=== PATIENT | male | born 1960 | race Caucasian/White ===

== ENCOUNTER 2020-10-08 12:23 | Inpatient (IN) | payer BC ==
[~2020-10-08] VITALS: Ht 182.9 cm; Wt 90.0 kg
--- NOTE | 2020-10-08 12:23 | NUR ---
TO ROOM FOR BEDSIDE TRIAGE
[2020-10-08 13:22] LABS: HEMATOCRIT 44.1 % (39.0-50.0); HEMOGLOBIN 14.9 g/dl (14.0-18.0); IMMATURE GRANULOCYTES 0.9 % (0.0-5.0); MEAN CELL VOLUME 82.3 fL CALC (80.0-100.0); MEAN CORPUSCULAR HGB 27.8 pG CALC (26.0-32.0); MEAN CORPUSCULAR HGB CONC 33.8 g/dL CAL (32.0-36.0); NEUT# 3.87 thou/uL (1.82-7.42); RED BLOOD COUNT 5.36 mill/uL (4.70-6.10); RED CELL DISTRI WIDTH 14.3 % (11.5-15.5)
--- NOTE | 2020-10-08 13:22 | NUR ---
Reassessment of patient completed. No distress noted.
[2020-10-08 13:50] LABS: ALKALINE PHOSPHATASE 104 u/l (38-126); ANION GAP 14 (6-22 (CALC)); BILIRUBIN, TOTAL 0.8 mg/dL (0.0-1.4); BUN 11 mg/dL (8-23); BUN/CREATININE RATIO 13 (12-20 (CALC)); CARBON DIOXIDE 21 mmol/l (22-30); CHLORIDE 100 mmol/l (95-108); CREATININE 0.9 mg/dL (0.7-1.3); GFR > 60 ML/MIN (>=60 (CALC)); GFR FOR AFR.AMER. > 60 ML/MIN (>=60 (CALC)); POTASSIUM 3.3 mmol/l (3.5-5.1); SGOT/AST 62 u/l (19-48); SODIUM 131 mmol/l (137-146); TOTAL PROTEIN 7.4 g/dL (6.3-8.2)
[2020-10-08 13:53] LABS: ACT PARTIAL THROMBO TIME 40.3 SECONDS (20.0-32.5); INTERNATIONAL NORMALIZED RATIO 1.1 RATIO (0.7-1.3); PROTHROMBIN TIME 11.1 SECONDS (9.0-12.5)
[2020-10-08 14:00] LABS: C-REACTIVE PROTEIN 23.3 mg/dL (0-0.9)
--- NOTE | 2020-10-08 14:59 | NUR ---
DR CASTRO STARTED ENTERING ORDERS, CALLED ER AND ASKED LUDY TO COMPLETE MED REC BEFORE PHARMACY VERIFIES ANY ORDERS.
[2020-10-08] MEDS ORDERED: HYDROXYCHLOR200 MG PO (15:03)
[2020-10-08] MEDS ORDERED: FEBUXOSTAT40 MG PO (15:04)
[2020-10-08] MEDS ORDERED: ASPIRIN81 MG PO (15:04)
[2020-10-08] MEDS ORDERED: MULTI VIT PO (15:05)
[2020-10-08] MEDS ORDERED: D3250 MCG PO (15:05)
[2020-10-08] MEDS ORDERED: TORSEMIDE20 M1 PO (15:06)
[2020-10-08] MEDS ORDERED: POT CHLORIDE20 ME3 PO (15:09)
[2020-10-08] MEDS ORDERED: HM MAGNESIUM400 MG PO (15:12)
[2020-10-08] MEDS ORDERED: VALTREX500 MG PO (15:15)
[2020-10-08] MEDS ORDERED: ALBUTEROL SUL0.083 % IN (15:17)
[2020-10-08] MEDS ORDERED: ACYCLOVIR200 MG PO (15:18)
[2020-10-08] MEDS ORDERED: DESOXIMETASONE 0.25% EX (15:19)
[2020-10-08] MEDS ORDERED: KENALOG15 GM/TUBE EX (15:19)
[2020-10-08] MEDS ORDERED: COLCHICINE0.6 M2 PO (15:19)
[2020-10-08] MEDS ORDERED: ZYRTEC10 MG PO (15:20)
--- NOTE | 2020-10-08 16:41 | NUR ---
PT REPORT TO KRISYS CARR.
[2020-10-08 17:33] VITALS: BP 149/79
--- NOTE | 2020-10-08 17:33 | NUR ---
PATIENT ARRIVED FROM ER. VITALS TAKEN AND RECORDED. NO CONCERNS OR COMPLAINTS
[2020-10-08 19:45] VITALS: BP 149/89
--- NOTE | 2020-10-08 19:56 | NUR ---
PATIENT RESTING IN BED AT THIS TIME-WITH HOB ELEVATED. O2 VIA NASAL CANNULA IN PLACE AT 2LPM. O2 SAT WAS 91% AND O2 INCREASED TO 2.5LPM-WILL REACCESS. PATIENT IS AWAKE ALERT AND ORIENTEDX3. TELE MONITOR IN PLACE. SALINE LOCK TO LEFT FOREARM IN PLACE-IVF NS HUNG AND INFUSING AT 100CC/HR. SITE IS HEALTHY AT THIS TIME. PATIENT ON ISOLATION IN NEG PRESSURE ROOM FOR COVID. PATIENT INSTRUCTED REGUARDING USE OF IS Q1H WHILE AWAKE IN REPS OF 10. ALSO INSTRUCTED REGUARDING PRONING TO PROMOTE RESP HEALING. VERBALIZES UNDERSTANDING. SAFETY PRECAUTIONS REINFORCED. CALL LIGHT IN REACH. WILL CONT TO MONITOR.
[2020-10-09] VITALS (11 sets, daily range): BP systolic 128–151; BP diastolic 71–90
--- NOTE | 2020-10-09 01:13 | NUR ---
PATIENT RESTING IN BED POSITIONED ON RIGHT SIDE WITH O2 VIA NASAL CANNULA IN PLACE. EYES ARE CLOSED. RESPS ARE EVEN AND UNLABORED AT THIS TIME. TELE MONITOR IN PLACE. IVF NS PATENT AND INFUSING VIA LEFT FREARM SITE AT 100CC/HR. SITE REMAINS HEALTHY. CALL LIGHT IN REACH. WILL CONT TO MONITOR.
--- NOTE | 2020-10-09 04:14 | NUR ---
PATIENT RESTING IN BED AT THIS TIME-POSITIONED ON RIGHT SIDE. O2 VIA NASAL CANNULA IN PLACE AT 2LPM. RESPS ARE EVEN AND UNLABORED. EYES ARE CLOSED. TELE MONITOR IN PLACE AT THIS TIME. IVF PATENT AND INFUSING ORDERED VIA LEFT FOREARM SITE. CALL LIGHT IN REACH. WILL CONT TO MONITOR.
--- NOTE | 2020-10-09 05:24 | NUR ---
0430-CALLED TO PATIENT ROOM BY BATCH MIXING TRUCK DRIVER DOING VS-O2 SAT WAS 84 WITH O2 VIA NASAL CANNULA IN PLACE AT 2LPM. ENCOURAGED PATIENT TO TAKE DEEP BREATHS. AND O2 SATS INCREASED TO 88% AFTER O2 WAS INCREASED TO 6LPM. RT CALLED TO THE ROOM AND RESPONDED. PATIENT INSISTS THAT HE HAS TO HAVE BM AND ASSISTED TO THE BSC. RT AT BEDSIDE AND PATIENT WAS PLACED ON HIGH FLOW-15LPM. PATIENT DID HAVE MODERATE AMT OF LOOSE BROWN STOOL AND ASSISTED BACK TO THE BED. SITTING UP HIGH FOWLERS POSITION. PATIENT DENIES ANY PAIN AT THIS TIME. PATIENT USED VENTOLIN INHALER ORDERED FOR PRN USE. PATIENT WITH OCC NON-PRODUCTIVE COUGH. LUNGS ARE CLEAR. IVF PATENT AND INFUSING VIA LEFT FOREARM IV SITE AT 100CC/HR. SITE IS HEALTHY AT THIS TIME. CALL LIGHT IN REACH. WILL CONT TO MONITOR. 0530-PATIENT RESTING IN BED IN HIGH FOWLERS POSITION.AWAKE ALERT AND ORIENTED. O2 HIGH FLOW 15LPM. PATIENT DENIES FEELING SOB OR HAVING ANY PAIN AT THIS TIME. O2 SAT IS 92% AT THIS TIME. WILL CONT TO MONITOR.
[2020-10-09 05:46] LABS: HEMOGLOBIN 14.8 g/dl (14.0-18.0); IMMATURE GRANULOCYTES 0.7 % (0.0-5.0); MEAN CORPUSCULAR HGB 27.3 pG CALC (26.0-32.0); MEAN CORPUSCULAR HGB CONC 32.9 g/dL CAL (32.0-36.0); NEUT# 3.28 thou/uL (1.82-7.42); RED BLOOD COUNT 5.42 mill/uL (4.70-6.10); RED CELL DISTRI WIDTH 14.2 % (11.5-15.5)
--- NOTE | 2020-10-09 05:57 | NUR ---
RESTING IN BED AT THIS TIME WITH HIGH FLOW O2 AT 15LITER IN PLACE. O2 SAT AT THIS TIME IS 94%. IVF PATENT AND INFUSING VIA LEFT FOREARM IV SITE AT 100CC/HR. SITE REMAINS H EALTHY. TELE MONITOR IN PLACE. NO COMPLAINTS AT THIS TIME-NO PAIN, NO SOB AT THIS TIME. CALL LIGHT IN REACH. WILL CONT TO MONITOR.
[2020-10-09 06:15] LABS: ALBUMIN 3.3 g/dL (3.2-5.0); ALKALINE PHOSPHATASE 96 u/l (38-126); ANION GAP 12 (6-22 (CALC)); BILIRUBIN, TOTAL 0.7 mg/dL (0.0-1.4); BUN 12 mg/dL (8-23); BUN/CREATININE RATIO 16 (12-20 (CALC)); CARBON DIOXIDE 23 mmol/l (22-30); CHLORIDE 105 mmol/l (95-108); CREATININE 0.7 mg/dL (0.7-1.3); GFR > 60 ML/MIN (>=60 (CALC)); GFR FOR AFR.AMER. > 60 ML/MIN (>=60 (CALC)); POTASSIUM 3.6 mmol/l (3.5-5.1); SGOT/AST 56 u/l (19-48); SODIUM 136 mmol/l (137-146); TOTAL PROTEIN 6.3 g/dL (6.3-8.2)
--- NOTE | 2020-10-09 06:26 | NUR ---
PATIENT SITTING HIGH FOWLERS WITH HIGH FLOW O2 AT 15LPM-O2 SAT IS 92-93% AT THIS TIME. TELE MONITOR IN PLACE. IVF PATENT AND INFUSING AT 100CC/HR ORDERED VIA LEFT FOREARM IV SITE. SITE REMAINS HEALTHY. SAFETY PRECAUTIONS REINFORCED. CALL LIGHT IN REACH. WILL CONT TO MONITOR.
[2020-10-09 06:35] LABS: C-REACTIVE PROTEIN 22.2 mg/dL (0-0.9)
--- NOTE | 2020-10-09 07:42 | NUR ---
PT SITTING IN BED EATING BREAKFAST. A&O X3. O2 VIA NC @15L HIGH FLOW IN PLACE. O2% SUSTAINING AT 96%, HIGHFLOW TITRATED DOWN TO 10L. O2 SUSTAINING 91-93%. PORTABLE O2 FINGER MONITOR PLACED FOR CONTINOUS O2 MONITORING. PT EDUCATED ON PRONING, EXPLAINED TO THE PT THAT HE WILL BE PRONING TO HELP WITH OXYGENATION NEEDS, PT AGREEABLE TO PLAN. IVF INFUSING PER MAR ORDERS. LOOM REPAIRER IN PLACE. CLEAR/DIMINISHED BREATH SOUNDS HEARD UPON AUSCULTATION. ASSESSMENT COMPLETED. DISCUSSED POC. CALL LIGHT LEFT WITHIN REACH.
--- NOTE | 2020-10-09 09:48 | NUR ---
PT ASSISTED INTO PRONE POSITION. O2 AT 10L HIGH FLOW. CALL LIGHT LEFT WITHIHN REACH.
--- NOTE | 2020-10-09 10:32 | NUR ---
DR HALE AT BEDSIDE O2 TITRATED BACK UP TO 15L HIGH FLOW
--- NOTE | 2020-10-09 10:45 | NUR ---
ORDERS OBTAINED TO TRANSFER PT TO ICU.
--- NOTE | 2020-10-09 11:16 | NUR ---
PT TAKEN VIA BED TO ICU BED 6 WITH O2 @15L. PT IN STABLE CONDITION. O2 MONITOR IN PLACE FOR CONTINIOUS O2 MONITORING DURING TRANSPORT. PT SETTLED IN ROOM. ORIENTED PT TO ROOM. CALL LIGHT LEFT WITHIN REACH.
--- NOTE | 2020-10-09 11:35 | NUR ---
PT IN ICU, ALERT/ORIENTED X3, ON HIGH FLOW 15 LITRES N/C, VITAL SIGNS STABLE. MOVED DUE TO HIGH USE OF OXYGEN
--- NOTE | 2020-10-09 12:42 | NUR ---
PT SITTING UP IN BED WATCHING TV, DENIES ANY COMPLAINTS AT THIS TIME REMAINS ALERT/ORIENTED X3.
--- NOTE | 2020-10-09 15:55 | NUR ---
PT SITTING UP IN HIGH FOWLERS POSITION, ALERT/ORIENTED X3, PT REMAINS ON HIGH FLOW 15 LITRES/NC, SATS 95-97%, WHILE TALKING TO PT HE STATES TO MAKE SURE THAT HE HAS ALL HIS ALLERGYS ON CHART. THAT HE HAD SEVERE ALLERGIC REACTIONS TO SUCCIYLCHELINE OR MIVACURIUM USED DURING AN INTUBATION. HE STATES HIS SURGEONS STATES NOT TO USE ANY OF THE [employer] DRUGS FOR THAT USE. UNABLE TO SPECIFICALLY STATE WHAT HAPPENED DURING THE TIME HE WAS INTUBATED WITH THOSE DRUGS.
--- NOTE | 2020-10-09 17:26 | NUR ---
UP TO USE URINAL, WHICH PT STATES HAS TO STAND TO DO, SATS DROPPED DOWN TO 87, RESP LABORED, BUT WITHIN 2 MIN OF LAYING BACK DOWN, SATS CAME BACK UP TO 95-96%.
--- NOTE | 2020-10-09 19:20 | NUR ---
pt called this blurb writer. pt requested to "go over some of my medicine." o2 cont 15 l/m per nc. pt laying on rt side. unable to prone d/t lower o2 sats as reported from previous shift. pt requested that physician be notified regarding some home meds he wanted restarted(valtrex, plaquenil,febuxostat). asked this blurb writer when call would be made. instructed pt after other pts were assessed. pt expressed "concern for my driving late." assisted to bedside commode. pt reassured. pt has MANY needs:water glass filled up, towel & wash cloth, cell phone plugged up, house shoes close to him, blinds closed then "cover me up" when pt went back to bed. sao2 87% after activity. pt recovered to 92%. pvc monitor shows sinus rhythm hr 78. #20 lfa ns infusing @ 100cchr. fall & air/contact precautions cont.
--- NOTE | 2020-10-09 19:40 | NUR ---
dr niño notified of pts request.
--- NOTE | 2020-10-09 20:00 | NUR ---
med in computor. pt notified & to let come into er waiting room to bring meds. pt asked "can she bring them in the morning?" asked pt wasn't that the reason he wanted them reordered was because he hadn't taken them today. 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
--- NOTE | 2020-10-09 21:00 | NUR ---
called this expert medical writer. requested to use urinal. pt sitting on side of bed. instructed pt urinal was hanging on beside commode where he hung it. voided per urinal, brushed teeth then c/o sob. pt then said he was "worried about having covid & my daughter wants her to be tested." pt reassured. instructed pt he may want to limit conversation d/t sao2 82%. rt notified of need to check sao2.
--- NOTE | 2020-10-09 21:20 | NUR ---
rt here. vapotherm began.
[2020-10-10] VITALS (15 sets, daily range): BP systolic 101–156; BP diastolic 54–89
--- NOTE | 2020-10-10 00:01 | NUR ---
eyes closed. no distress. o2 cont per vapotherm. sao2 92%
--- NOTE | 2020-10-10 02:00 | NUR ---
resting quietly. resps even & unlabored. no apparet resp distress.
--- NOTE | 2020-10-10 03:30 | NUR ---
up to bedside commode then back to bed. sao2 72%. rt was notified & he increased vapotherm to 40 l/m 100%-sao2 95%.
--- NOTE | 2020-10-10 04:30 | NUR ---
lab here. blood drawn.
[2020-10-10 04:54] LABS: HEMATOCRIT 43.1 % (39.0-50.0); HEMOGLOBIN 13.9 g/dl (14.0-18.0); IMMATURE GRANULOCYTES 1.2 % (0.0-5.0); MEAN CELL VOLUME 83.9 fL CALC (80.0-100.0); MEAN CORPUSCULAR HGB CONC 32.3 g/dL CAL (32.0-36.0); NEUT# 6.84 thou/uL (1.82-7.42); RED BLOOD COUNT 5.14 mill/uL (4.70-6.10); RED CELL DISTRI WIDTH 14.4 % (11.5-15.5)
--- NOTE | 2020-10-10 06:00 | NUR ---
eyes closed. sao2 93% on 40 l/m 100% vapotherm.
--- NOTE | 2020-10-10 09:17 | NUR ---
PT SEEN AWAKE, ALERT, ORIENTED X 3. LUNGS CLEAR, VAPOTHERM AT 40/100. PT WATCHES MONITOR, AWAKE OF HIS DESATTING. PT OOB IN CHAIR AT THIS TIME.
--- NOTE | 2020-10-10 11:40 | NUR ---
PT SEEN BY DR CASTRO THIS MORNING, CONTINUES WITH BORDERLINE SATS IN THE LOW TO MID 90s. PT DENIES SOB.
--- NOTE | 2020-10-10 15:57 | NUR ---
PT CONTINUES AT REST IN THE BED, SATS LOW 90s. NO SHORTNESS OF BREATH NOTED EXCEPT WITH EXERTION.
--- NOTE | 2020-10-10 18:38 | NUR ---
PT ABLE TO EAT SUPPER, LIQUIDS, SINCE CHEWING TAKES TOO MUCH TIME BEFORE HE CAN GET ANOTHER BREATH. PT DOING WELL, SATS REMAINING 89-94%.
--- NOTE | 2020-10-10 20:36 | NUR ---
DR. JORGE CALL PER CONSULTATION ORDER. UNABLE TO VIDEO CHAT DUE TO TECHNICAL ISSUES ON HER END. PROVIDER SPOKE WITH PATIENT VIA PHONE. REVIEWED CHIEF COMPLAINTS AND HISTORY. PATIENT CURRENTLY ON VAPOTHERM 40/100 SATURATION 92%. PHYSICIAN RECOMMENDS USE OF INCENTIVE SPIROMETRY, PATIENT HAVE AT BEDSIDE. SHE ALSO RECOMMENDS USE OF FLUTTER VALVE AFTER ALBUTEROL INHALER. SHE FURTHER EXPLAINS THAT HIS RECOVERY WILL BE SLOW AND DISCUSS THE POSSIBLITY OF HOME OXYGEN UPON DISCHARGE. PROVIDER ALLOWED TIME FOR QUESTIONS FROM PATIENT AND ANSWERED. PATIENT VERBALIZES UNDERSTANDING OF PLAN SAID BY DR. JORGE.
--- NOTE | 2020-10-10 22:52 | NUR ---
LATE ENTRY 1904 SBAR RECEIVED FROM KRISSY CAMPBELL. PATIENT LYING QUIETLY IN BED. CALL LIGHT IN REACH.
[2020-10-11] VITALS (13 sets, daily range): BP systolic 128–160; BP diastolic 82–92
--- NOTE | 2020-10-11 00:56 | NUR ---
RESTING QUIETLY EYES CLOSED. SATURATION 93%. NO DISTRESS NOTED. CALL LIGHT WITHIN REACH
--- NOTE | 2020-10-11 02:16 | NUR ---
PATIENT WAS ASSISTED TO BSC. VOIDS YELLOW/CLEAR URINE. NO ACUTE DISTRESS SHOWN. NO COMPLAINTS AT THIS TIME. CALL LIGHT WITHIN REACH.
[2020-10-11 06:00] LABS: HEMATOCRIT 46.3 % (39.0-50.0); HEMOGLOBIN 15.3 g/dl (14.0-18.0); IMMATURE GRANULOCYTES 2.6 % (0.0-5.0); MEAN CELL VOLUME 83.7 fL CALC (80.0-100.0); MEAN CORPUSCULAR HGB 27.7 pG CALC (26.0-32.0); NEUT# 8.79 thou/uL (1.82-7.42); RED BLOOD COUNT 5.53 mill/uL (4.70-6.10); RED CELL DISTRI WIDTH 14.4 % (11.5-15.5)
[2020-10-11 06:18] LABS: ALBUMIN 3.5 g/dL (3.2-5.0); ALKALINE PHOSPHATASE 115 u/l (38-126); BILIRUBIN, TOTAL 0.8 mg/dL (0.0-1.4); BUN 13 mg/dL (8-23); BUN/CREATININE RATIO 17 (12-20 (CALC)); C-REACTIVE PROTEIN 4.9 mg/dL (0-0.9); CHLORIDE 100 mmol/l (95-108); CREATININE 0.8 mg/dL (0.7-1.3); GFR > 60 ML/MIN (>=60 (CALC)); GFR FOR AFR.AMER. > 60 ML/MIN (>=60 (CALC)); POTASSIUM 3.7 mmol/l (3.5-5.1); SGOT/AST 77 u/l (19-48); SODIUM 137 mmol/l (137-146); TOTAL PROTEIN 6.7 g/dL (6.3-8.2)
--- NOTE | 2020-10-11 06:22 | NUR ---
PATIENT CONTINUES TO REST QUIETLY. DENIES PAIN AT THIS TIME. NO DISCOMFORT NOTED. SATURATION 91%.
[2020-10-11 06:31] LABS: ANION GAP 11 (6-22 (CALC)); CARBON DIOXIDE 30 mmol/l (22-30)
--- NOTE | 2020-10-11 08:38 | NUR ---
PT AT REST IN THE BED, NO RESPIRATORY DISTRESS. VAPOTHERM AT 40 LPM 100% WITH SATS IN THE UPPER 80s TO LOW 90s. LUNGS CLEAR. PT ENCOURAGED TO USE INCENTIVE SPIROMETER AND FLUTTER VALVE RECOMMENDED BY DR JORGE.
--- NOTE | 2020-10-11 11:27 | NUR ---
DR CASTRO IN TO SEE PT THIS MORNING, VAPOTHERM SETTINGS CHANGED FROM 40 LPM 100% OXYGEN TO 35 LPM 95% OXYGEN. PT TOLERATING WELL AT 92% TO THIS POINT.
--- NOTE | 2020-10-11 16:11 | NUR ---
PT HAS BEEN WEANED DOWN TO 35 LPM 85%, SATS SEEN LOW 90s, TOLERATING WELL.
--- NOTE | 2020-10-11 19:10 | NUR ---
SBAR RECEIVED FROM SHANNAN REY. PATIENT SHORT OF BREATH AFTER USING BSC. SATURATION 87% ON VAPOTHERM 35L/83%. OXYGEN INCREASED TO 85%, AFTER COACHING THROUGH BREATHING TECHNIQUES SATURATION INPROVED TO 90%
--- NOTE | 2020-10-11 22:22 | NUR ---
RESTING QUIETLY IN BED. SATURATION CURRENTLY 92%, PATIENT OCCASIONALLY DE-SAT WITH EXERTION. NO DISTRESS NOTED AT THIS TIME, CALL LIGHT WITHIN REACH.
[2020-10-12] VITALS (16 sets, daily range): BP systolic 131–168; BP diastolic 68–101
--- NOTE | 2020-10-12 01:09 | NUR ---
PATIENT CONTINUES TO DE-SAT TO LOW 80'S WITH EXERTION. HE HAS DIFFICULTY RECUPERATING, TAKING 10 MINUTES OR LONGER FOR SATURATION TO IMPROVE.
--- NOTE | 2020-10-12 04:59 | NUR ---
PATIENT UP TO BEDSIDE TO USE URINAL. SATURATION DOWN TO HIGH 70'S, LOW 80'S. PATIENT HAVING DIFFICULTY RECUPERATING ON VAPOTHERM SETTING 35L/85%. RELAXATION AND DEEP BREATHING TECHNIQUES PERFORMED WITHOUT SUCCESS. RESPIRATORY THERAPIST NOTIFIED, CHANGED SETTING TO 35L/90%. STILL TOOK ABOUT 10 MINUTES TO REACH SATURATION OF 90%. PATIENT ASSISTED BACK TO BED, LEFT LATERAL POSITION. CALL LIGHT WITHIN REACH WILL CONTINUE TO MONITOR.
[2020-10-12 06:08] LABS: HEMATOCRIT 46.1 % (39.0-50.0); HEMOGLOBIN 15.2 g/dl (14.0-18.0); IMMATURE GRANULOCYTES 5.6 % (0.0-5.0); MEAN CELL VOLUME 83.8 fL CALC (80.0-100.0); MEAN CORPUSCULAR HGB 27.6 pG CALC (26.0-32.0); NEUT# 8.69 thou/uL (1.82-7.42); RED BLOOD COUNT 5.5 mill/uL (4.70-6.10); RED CELL DISTRI WIDTH 14.3 % (11.5-15.5)
[2020-10-12 06:41] LABS: ALBUMIN 3.3 g/dL (3.2-5.0); ALKALINE PHOSPHATASE 110 u/l (38-126); ANION GAP 11 (6-22 (CALC)); BILIRUBIN, TOTAL 0.8 mg/dL (0.0-1.4); BUN 11 mg/dL (8-23); BUN/CREATININE RATIO 14 (12-20 (CALC)); CARBON DIOXIDE 32 mmol/l (22-30); CHLORIDE 98 mmol/l (95-108); CREATININE 0.8 mg/dL (0.7-1.3); GFR > 60 ML/MIN (>=60 (CALC)); GFR FOR AFR.AMER. > 60 ML/MIN (>=60 (CALC)); POTASSIUM 3.7 mmol/l (3.5-5.1); SGOT/AST 77 u/l (19-48); SODIUM 137 mmol/l (137-146); TOTAL PROTEIN 6.5 g/dL (6.3-8.2)
--- NOTE | 2020-10-12 09:09 | NUR ---
O2 SATURATION DROPPED TO 80%. FIO2 INCREASED TO 100% AND 40L.
--- NOTE | 2020-10-12 09:14 | NUR ---
PT IS ALERT AND ORIENTED X 3. EARLIER SATS WERE LOW 90s WITH 35/90 VAPOTHERM. SINCE THAT TIME PT HAS BECOME INCREASINGLY SHORT OF BREATH, SATS UPPER 80s, RT HAS TURNED VAPOTHERM UP TO MAX 40/100, HR 120-130. PT APPEARS LABORING, WILL PROMOTE GOOD POSITIONING, RELAXATION TECHNIQUES.
--- NOTE | 2020-10-12 13:33 | NUR ---
PT WAS TURNED BACK UP TO 40/100 SINCE HE WAS LABORING TO BREATHE AND SATS WERE 80s. PT WAS LATER BATHED, SITS UP IN CHAIR, CONTINUES LABORING SOMEWHAT WITH BREATHING, NO PLANS TO BRING LPM OR %O2 DOWN HE LABORS.
--- NOTE | 2020-10-12 16:15 | NUR ---
PT REMAINS IN THE CHAIR, AT REST. VAPOTHERM CONTINUES 40/100 TO ALLOW HIM LESS WORK AT MAINTAINING GOOD SATS, NOW 93%.
--- NOTE | 2020-10-12 19:40 | NUR ---
sitting in bedside chair. o2 cont 40 liters 100% per vapotherm. sob w exert but no acute resp diff. color television console monitor shows sinus rhythm pvcs hr 81. #20 lfa saline lock. po fluids taken well. voids per urinal. fall & air/contact precautions cont. requires MUCH encouragement to assist with care.
--- NOTE | 2020-10-12 22:00 | NUR ---
eyes closed. no distress. cardiac catheterization technologist shows sinus rhythm hr 84.
[2020-10-13] VITALS (13 sets, daily range): BP systolic 122–173; BP diastolic 65–107
--- NOTE | 2020-10-13 00:01 | NUR ---
yes closed. nad. o2 cont.
--- NOTE | 2020-10-13 02:00 | NUR ---
resting quietly. resps even & unlabored. residential monitor shows sinus rhythm pvcs hr 84.
--- NOTE | 2020-10-13 05:00 | NUR ---
lab here. blood drawn.
--- NOTE | 2020-10-13 05:55 | NUR ---
pulse ox 82-83%. rt notified.
[2020-10-13 06:07] LABS: HEMATOCRIT 50.6 % (39.0-50.0); MEAN CELL VOLUME 83.5 fL CALC (80.0-100.0); MEAN CORPUSCULAR HGB 28.1 pG CALC (26.0-32.0); MEAN CORPUSCULAR HGB CONC 33.6 g/dL CAL (32.0-36.0); NEUT# 9.17 thou/uL (1.82-7.42); RED BLOOD COUNT 6.06 mill/uL (4.70-6.10); RED CELL DISTRI WIDTH 14.5 % (11.5-15.5)
[2020-10-13 06:20] LABS: IMMATURE GRANULOCYTES 6.8 % (0.0-5.0)
[2020-10-13 06:23] LABS: ALKALINE PHOSPHATASE 127 u/l (38-126); ANION GAP 15 (6-22 (CALC)); BILIRUBIN, TOTAL 0.9 mg/dL (0.0-1.4); BUN 17 mg/dL (8-23); BUN/CREATININE RATIO 18 (12-20 (CALC)); CARBON DIOXIDE 35 mmol/l (22-30); CHLORIDE 94 mmol/l (95-108); GFR > 60 ML/MIN (>=60 (CALC)); GFR FOR AFR.AMER. > 60 ML/MIN (>=60 (CALC)); POTASSIUM 3.6 mmol/l (3.5-5.1); SGOT/AST 55 u/l (19-48); SODIUM 140 mmol/l (137-146); TOTAL PROTEIN 7.8 g/dL (6.3-8.2)
--- NOTE | 2020-10-13 06:23 | NUR ---
PT PLACED ON BIPAP PER PT SPO2. ARTHUR WELL. NO ACUTE DISTRESS NOTED. PT NOW RESTING COMFORTABLY ON LEFT SIDE, LAYING IN BED, WITH HJOB FLAT. TELEPHONE APPOINTMENT CLERK TO MONITOR. RN AWARE.
[2020-10-13 06:42] LABS: C-REACTIVE PROTEIN 22.7 mg/dL (0-0.9)
--- NOTE | 2020-10-13 07:30 | NUR ---
REPORT RECEIVED FROM MARIANA KINNEY. PT RESTING IN BED ON RIGHT SIDE WITH BIPAP ON 27/03 100%. BIPAP REMOVED AND PLACED ON VAPOTHERM 40L 100%. PT IS ALERT AND ORIENTED X 3; DENIES PAIN; REPORTS THAT TYLENOL WAS EFFECTIVE FOR HEADACHE AND LOWER BACK PAIN. ASSISTED UP INTO CHAIR; SOB WITH EXERTION AN SPO2 DECREASES TO 84%; LUNGS ARE DIMINISHED. IV SITE APPEARS HEALTHY AND FLUSHES. POC REVIEWED. PT ENCOURAGED TO VERBALIZE CONCERNS. STATES UNDERSTANDING. SAFETY MEASURES IN PLACE. CALL LIGHT WITHIN REACH.
--- NOTE | 2020-10-13 09:24 | NUR ---
UP TO BSC FOR BOWEL MOVEMENT. BRIGHT RED BLOOD IN STOOL; PT REPORTS THAT HE NORMALLY GETS HEMORRHOIDS WHEN HE IS ON ANTIBIOTICS. BACK UP BEDSIDE CHAIR.
--- NOTE | 2020-10-13 10:07 | NUR ---
DR. CASTRO AT BEDSIDE.
--- NOTE | 2020-10-13 12:00 | NUR ---
ROCEPHIN INFUSING AT THIS TIME; PT SET UP FOR ORAL CARE. NURSE IN ROOM FREQUENTLY FOR PT REQUESTS. BLOOD PRESSURE SLIGHTLY ELEVATED; WILL CONTINUE TO MONITOR.
--- NOTE | 2020-10-13 14:21 | NUR ---
TYLENOL GIVEN FOR HEADACHE ALONG WITH DIET COLA PER REQUEST. REMDESIVIR NOW INFUSING.
--- NOTE | 2020-10-13 16:01 | NUR ---
pt doing well on current vapotherm settings. no changes in parameters at this time. no acute distress noted. vital signs stable. plug cutter to monitor.
--- NOTE | 2020-10-13 17:30 | NUR ---
SITTING UP EATING DINNER; RESPIRATIONS EVEN AND UNLABORED; PT REMAINS WITH EXERTION SOB. SPO2 90-91% ON VAPOTHERM 40L 100% FIO2. REPORTS THAT TYLENOL WAS EFFECTIVE FOR HEADACHE. NO OTHER REQUESTS OR CONCERNS AT THIS TIME. CALL LIGHT WITHIN REACH.
--- NOTE | 2020-10-13 19:30 | NUR ---
sitting in bedside chair. denies resp diff. o2 cont 40 liters 100% per vapotherm. front desk monitor shows sinus rhythm hr 90. #20 lfa saline lock. po fluids taken well. voids per urinal. fall & air/contact precautions cont.
--- NOTE | 2020-10-13 22:30 | NUR ---
assisted to bed. cont to be sob with exert but denies distress. o2 cont.
[2020-10-14] VITALS (12 sets, daily range): BP systolic 138–173; BP diastolic 77–104
--- NOTE | 2020-10-14 00:01 | NUR ---
awake. voided per urinal. cardiac rn shows sinus tach pvcs hr 104.
--- NOTE | 2020-10-14 00:30 | NUR ---
up to bsc per request. requested bipap off while on commode. request denied. instructed pt bipap would remain. lea well.
--- NOTE | 2020-10-14 02:10 | NUR ---
awake. sitting on side of bed. sa02 79-82%. rt notified. bipap began.
--- NOTE | 2020-10-14 02:30 | NUR ---
assisted to chair per request.
--- NOTE | 2020-10-14 02:40 | NUR ---
assisted back to bed. bipap cont.
--- NOTE | 2020-10-14 04:00 | NUR ---
eyes closed. bipap cont. no distress. manager monitoring shows sinus rhythm pvcs hr 66.
--- NOTE | 2020-10-14 05:00 | NUR ---
lab here. blood drawn.
[2020-10-14 05:45] LABS: HEMATOCRIT 46.8 % (39.0-50.0); MEAN CELL VOLUME 84.9 fL CALC (80.0-100.0); MEAN CORPUSCULAR HGB 27.2 pG CALC (26.0-32.0); MEAN CORPUSCULAR HGB CONC 32.1 g/dL CAL (32.0-36.0); RED BLOOD COUNT 5.51 mill/uL (4.70-6.10); RED CELL DISTRI WIDTH 14.2 % (11.5-15.5)
[2020-10-14 06:18] LABS: ALBUMIN 3.4 g/dL (3.2-5.0); ALKALINE PHOSPHATASE 122 u/l (38-126); ANION GAP 11 (6-22 (CALC)); BILIRUBIN, TOTAL 0.8 mg/dL (0.0-1.4); BUN 19 mg/dL (8-23); BUN/CREATININE RATIO 18 (12-20 (CALC)); CARBON DIOXIDE 36 mmol/l (22-30); CHLORIDE 95 mmol/l (95-108); GFR > 60 ML/MIN (>=60 (CALC)); GFR FOR AFR.AMER. > 60 ML/MIN (>=60 (CALC)); POTASSIUM 3.8 mmol/l (3.5-5.1); SGOT/AST 35 u/l (19-48); SODIUM 138 mmol/l (137-146); TOTAL PROTEIN 6.9 g/dL (6.3-8.2)
--- NOTE | 2020-10-14 07:25 | NUR ---
PLACED PT FROM BIPAP TO VAPOTHERM PER REQUEST. SITUATED PT IN BEDSIDE CHAIR. REPLACED SPO2 PROBE, AND STAYED WITH PT UNTIL SPO2 BACK WNL. SD SITING COMFORTABLY IN CHAIR, ON PERSONAL CELL PHONE. NO APPARANT DISTRESS NOTED.RN AWARE. METER INSTALLER TO MONITOR.
--- NOTE | 2020-10-14 09:27 | NUR ---
PT SEEN AWAKE, ALERT, ORIENTED X 3. LUNGS CLEAR BUT SLIGHTLY DIMINISHED TODAY, PT USING VAPOTHERM AT 40/100. PT IN CHAIR AT THIS TIME, MOVES BETWEEN BED AND CHAIR PER COMFORT LEVEL. ALMAZAN. PT AWARE OF NEW ORDER FOR ANTIANXIETY MED, ENCOURAGED TO USE IF NEEDED.
--- NOTE | 2020-10-14 10:21 | NUR ---
DAUGHTER KIT WAS UPDATED ON PT CONDITION, .
--- NOTE | 2020-10-14 13:00 | NUR ---
PT REMAINS OOB IN CHAIR WITH VAPOTHERM RUNNING AT 40/100. PT STATES THAT HE IS RECOVERING QUICKER FROM ACTIVITY WHEN HE STANDS TO VOID OR USE BSC.
--- NOTE | 2020-10-14 16:26 | NUR ---
PT ARTHUR VAPOTHERM WEL AT THIS TIME. RESTING COMFORTABLY IN CHAIR AT BEDSIDE. DAY CARE ATTENDANT TO MONITOR. NO ACUTE DISTRESS NOTED. VSS.
--- NOTE | 2020-10-14 16:38 | NUR ---
DR GARCIA HAS BEEN CONSULTED VIA TELEMEDICINE, RECOMMENDATIONS IN CHART. DR CASTRO AWARE, ORDERS NEW MED. PT CONTINUES WITH SATS IN THE LOW 90s MOST OF THE TIME.
--- NOTE | 2020-10-14 19:18 | NUR ---
PT RESTING COMFORTABLY IN RECLINER AT BEDSIDE. NO ACUTE DISTRESS NOTED. VITAL SIGNS STABLE. SUPERVISOR SHEET MANUFACTURING TO MONITOR.
--- NOTE | 2020-10-14 19:45 | NUR ---
sitting in bedside chair. denies resp diff. o2 cont 40 l/m 100% per vapotherm. #20 lfa saline lock. po fluids taken well. voids per urinal. fall & air/contact precautions cont.
--- NOTE | 2020-10-14 22:00 | NUR ---
remains in bedside chair. nad. o2 cont per vapotherm.
--- NOTE | 2020-10-14 22:15 | NUR ---
assisted to bedside commode then into bed. requested bipap. rt notified.
[2020-10-15] VITALS (11 sets, daily range): BP systolic 114–178; BP diastolic 69–110
--- NOTE | 2020-10-15 02:00 | NUR ---
eyes closed. resps even & unlabored. bipap conts.
--- NOTE | 2020-10-15 02:15 | NUR ---
up to bsc per request. requested bipap off & n/c on while on bsc. request denied.
--- NOTE | 2020-10-15 03:50 | NUR ---
up to bsc. lea well. no resp diff.
--- NOTE | 2020-10-15 05:15 | NUR ---
lab here. blood drawn.
[2020-10-15 05:24] LABS: HEMATOCRIT 45.3 % (39.0-50.0); HEMOGLOBIN 14.7 g/dl (14.0-18.0); MEAN CELL VOLUME 85.2 fL CALC (80.0-100.0); MEAN CORPUSCULAR HGB 27.6 pG CALC (26.0-32.0); MEAN CORPUSCULAR HGB CONC 32.5 g/dL CAL (32.0-36.0); NEUT# 6.3 thou/uL (1.82-7.42); RED BLOOD COUNT 5.32 mill/uL (4.70-6.10); RED CELL DISTRI WIDTH 14.2 % (11.5-15.5)
[2020-10-15 05:28] LABS: IMMATURE GRANULOCYTES 6.1 % (0.0-5.0)
--- NOTE | 2020-10-15 05:57 | NUR ---
eyes closed. no distress. bipap conts. property assessment monitor shows sinus rhythm hr 76.
[2020-10-15 06:25] LABS: ALBUMIN 3.5 g/dL (3.2-5.0); ALKALINE PHOSPHATASE 127 u/l (38-126); ANION GAP 11 (6-22 (CALC)); BILIRUBIN, TOTAL 0.8 mg/dL (0.0-1.4); BUN 20 mg/dL (8-23); BUN/CREATININE RATIO 24 (12-20 (CALC)); C-REACTIVE PROTEIN 7.7 mg/dL (0-0.9); CARBON DIOXIDE 34 mmol/l (22-30); CHLORIDE 96 mmol/l (95-108); CREATININE 0.9 mg/dL (0.7-1.3); GFR > 60 ML/MIN (>=60 (CALC)); GFR FOR AFR.AMER. > 60 ML/MIN (>=60 (CALC)); SGOT/AST 36 u/l (19-48); SODIUM 137 mmol/l (137-146); TOTAL PROTEIN 7.2 g/dL (6.3-8.2)
--- NOTE | 2020-10-15 07:00 | NUR ---
PT SLEEPING IN BED WITH BIPAP ON, O2 95%, RR 29. ST ON MONITOR, OCCASIONAL PVC'S. NO S/S OF DISTRESS OBSERVED.
--- NOTE | 2020-10-15 08:21 | NUR ---
PLACED PT ON VPOTHERM, OF OF BIPAP, PER PT BREAKFAST TRAY AVAILABLE. MOED PT FROM BED TOBEDSIDE CHAIR PER PT REQUEST, REORGANIZED AND SITUATED PT TO COMFORT. STAYED C PT UNTIL VSS. NO ACUTE DISTRESS AT THIS TIME. DIRECTOR OF CULTURE TO MONITOR. RN AWARE.
--- NOTE | 2020-10-15 11:47 | NUR ---
PT RESTING IN CHAIR AT BEDSIDE. NAD. VSS. MEDICAL VOUCHER CLERK TO MONITOR.
--- NOTE | 2020-10-15 19:09 | NUR ---
PATIENT SITS IN RECLINER, RESTS WITH EYES CLOSED. NO ACUTE DISTRESS SHOWN. SR ON TELEMETRY, HR 80'S. O2 SAT 95%, RESPIRATION RATE 25-28.
--- NOTE | 2020-10-15 19:45 | NUR ---
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 HAD A SMALL/SOFT/BROWN BM, VOIDED IN URINAL 250 ML YELLOW/CLEAR. PATIENT BECOMES SOB AND DESATS TO 76% WHEN STANDING UP AND USING BSC. PATIENT WAS DIRECTED EACH TIME TO TAKE DEEP BREATHS AND ENCOURAGED PURSED LIP BREATHING, HE NEEDS CONSTANT REINFORCEMENT, EDUCATED TO FOCUS ON HIS BREATHING, HR TACHYCARDIC IN LOW 100'S. NURSE ASSESSMENT PERFORMED. ON VAPOTHERM 40 LITERS AND 100% FIO2. POC DISCUSSED, MEDICATIONS HE IS CURRENTLY ON DISCUSSED. HAS A PRODUCTIVE COUGH. RESPIRATIONS UP TO 29-35 WITH EXERTION. AFEBRILE. LFA 20 G IV INTACT, FLUSHES PROPERLY, SALINE LOCKED. NO OTHER COMPLAINTS OR NEEDS AT THIS TIME. CALL LIGHT WITHIN REACH.
--- NOTE | 2020-10-15 21:47 | NUR ---
PATIENT ABLE TO SWALLOW HIS MEDICATIONS, TOLERATED LOVENOX INJECTION. USED URINAL, DID DESAT TO 76%, SITS DOWN ON RECLINER TO DEEP BREATH. ABLE TO TRASNFER TO BED, LAYS ON HIS RIGHT SIDE. DRINKS WATER, APPLIES MOUTH MOISTURIZER, REPORTS HE WILL BE ON VAPOTHERM AND IF ANY CHANGES HE WILL REQUEST BIPAP. CALL LIGHT WITHIN REACH. WILL CONTINUE TO MONITOR.
[2020-10-16] VITALS (20 sets, daily range): BP systolic 119–185; BP diastolic 73–111
--- NOTE | 2020-10-16 00:13 | NUR ---
PATIENT HAD GOTTEN U TO USE URINAL, DESATS TO 70'S. NOW LAYS ON HIS LEFT SIDE, ENCOURAGED DEEP BREATHING. RESP RATE 30'S. JIHAN CONTINUE TO MONITOR.
--- NOTE | 2020-10-16 04:18 | NUR ---
PATIENT UP TO USE URINAL AND BECAME SOB, TACHYPNEIC, O2 SATS LOW 56%, PATIENT WANTED TO KEEP TALKING, WAS INSTRUCTED TO TAKE DEEP BREATHS, PURSED LIP BREATHING, FOCUS ON BREATHING. O2 SAT AROUND 60'S-70%, PATIENT WAS EXPLAINED HE NEEDED BIPAP AT THIS TIME, RT CALLED TO BEDSIDE, PLACED ON BIPAP AT FIO2 OF 100%, PATIENT AT THIS TIME O2 SATS ARE 92%. RESPIRATION RATE 26. LAYS ON HIS LEFT SIDE. DOES HAVE A THICK/BLOOD TINGED/YELLOW-GREEN PRODUCTIVE COUGH. AFEBRILE. BP AT TIME OF DISTRESS READ 180'S, NOW 133/78 MMHG. CALL LIGHT WITHIN REACH.
[2020-10-16 05:18] LABS: HEMOGLOBIN 15.4 g/dl (14.0-18.0); MEAN CELL VOLUME 86.1 fL CALC (80.0-100.0); MEAN CORPUSCULAR HGB 27.1 pG CALC (26.0-32.0); MEAN CORPUSCULAR HGB CONC 31.4 g/dL CAL (32.0-36.0); NEUT# 7.65 thou/uL (1.82-7.42); RED BLOOD COUNT 5.69 mill/uL (4.70-6.10); RED CELL DISTRI WIDTH 14.5 % (11.5-15.5)
[2020-10-16 05:23] LABS: IMMATURE GRANULOCYTES 6.1 % (0.0-5.0)
[2020-10-16 05:39] LABS: ANION GAP 13 (6-22 (CALC)); BUN 27 mg/dL (8-23); BUN/CREATININE RATIO 30 (12-20 (CALC)); CARBON DIOXIDE 31 mmol/l (22-30); CHLORIDE 98 mmol/l (95-108); CREATININE 0.9 mg/dL (0.7-1.3); GFR > 60 ML/MIN (>=60 (CALC)); GFR FOR AFR.AMER. > 60 ML/MIN (>=60 (CALC)); POTASSIUM 4.3 mmol/l (3.5-5.1); SODIUM 137 mmol/l (137-146)
--- NOTE | 2020-10-16 06:14 | NUR ---
PATIENT LAYS ON HIS SIDE, RESTS WITH EYES CLOSED. CONTINUES TO BE ON BIPAP. O2 SAT 95%.
--- NOTE | 2020-10-16 07:59 | NUR ---
BIPAP STANDBY. PT ON VAPOTHERM 40L @ 100%
--- NOTE | 2020-10-16 09:30 | NUR ---
PT SEEN AWAKE, ALERT, ORIENTED X 3. PT OOB IN CHAIR AT THIS TIME, SATS REMAIN UPPER 80s TO LOW 90s. PT DENIES SHORTNESS OF BREATH, BUT IS AWARE OF CATCHING HIS BREATH AGAIN AFTER EXERTION. BLOOD NOTED ON COMMODE PER HEMORRHOIDS, NOT A SIGNIFICANT AMOUNT.
--- NOTE | 2020-10-16 14:14 | NUR ---
PT MOVED FROM ROOM 6 TO ROOM 1 PER UPCOMING DOOR REPAIR. PT TOLERATED WELL, BUT ROOM IS RECTANGULAR SO PLACEMENT OF ITEMS IS CHALLENGING. PT PLACED ON BiPAP NOW, SATS UPPER 90s. NO DISTRESS NOTED, PT AT REST IN CHAIR AT BEDSIDE.
--- NOTE | 2020-10-16 16:08 | NUR ---
PT HAS BATHED, USED BR, NOW RESTING IN CHAIR AT BEDSIDE IN ROOM 1. PT DID WELL ON BiPAP BUT GETS CLAUSTROPHOBIC WHEN IT IS ON FOR A WHILE.
--- NOTE | 2020-10-16 19:33 | NUR ---
PATIENT IS AWAKE, ORIENTED X4, ON VAPOTHERM 40 L/MIN, FIO2 100%, O2 SATS 85%-88%, SOB WITH EXERTION. SINUS TACHYCARDIC, LOW 100'S WITH EXERTION. SITS IN RECLINER. NURSE ASSESSMENT PERFORMED. POC DISCUSSED. PATIENT REPORTS YESTERDAY HE WAS DOING BETTER THAN TODAY. LFA IV WILL BE CHANGED DUE TO LEAKING, PATIENT REQUESTS TO HAVE IT PLACED ON LFA AGAIN. REQUESTED TO HAVE FAN TURNED OFF DUE TO HE IS COLD. NO COUGH NOTED AT THIS TIME. EXPRESSES CONCERN ABOUT LOCATION OF VAPOTHERM, BSC, RECLINER, BEDSIDE TABLE WHEN HE GOES TO BED TONIGHT, I EXPLAINED WE WILL PLACE EVERYTHING TO HIS REACH AND CLOSE TO THE BED, AND MOVE THINGS WE DON'T NEED TONIGHT OUT OF THE WAY. AFEBRILE. SELF REPSOITIONS, URINAL EMPTIED, URINE YELLOW/CLEAR. CALL LIGHT WITHIN REACH.
--- NOTE | 2020-10-16 21:30 | NUR ---
PATIENT WAS UP TO BSC, DESATS WITH EXERTION TO 76%, WAS REMINDED TO DEEP BREATHE, PURSED LIP BREATHING AND TAKE BREAKS IN BETWEEN BY SITTING DOWN UNTIL O2 SATS STABLE FOR HIM TO GET UP AGAIN. WAS ASSISTED WITH LAYING IN BED. LAYS ON HIS RIGHT SIDE. NO OTHER NEEDS AT THIS TIME. CALL LIGHT WITHIN REACH.
--- NOTE | 2020-10-16 22:25 | NUR ---
PATIENT ABLE TO SWALLOW HIS MEDICATIONS, LOVENOX INJECTION PROVIDED, NEW IV PLACED ON HIS LFA 22 G. WAS ABLE TO TOLERATE. NO OTHR NEEDS AT THIS TIME.
[2020-10-17] VITALS (19 sets, daily range): BP systolic 129–162; BP diastolic 77–105
--- NOTE | 2020-10-17 01:34 | NUR ---
PATIENT AWAKENS WITH PAINFUL STIMULI. LAYS ON HIS RIGHT SIDE. AFEBRILE. 02 SAT 87%, RESP. RATE 27. NO COMPLAINTS OR NEEDS AT THIS TIME.
--- NOTE | 2020-10-17 02:00 | NUR ---
RT [place] CALLED DUE TO PATIENT ASSURANCE ENGINEER LIGHT REQUESTING TO BE PLACED ON BIPAP, PLACED ON BIAPA FIO2 100%. LAYS IN PUGA'S. WILL CONTINUE TO MONITOR
[2020-10-17 04:40] LABS: HEMATOCRIT 49.4 % (39.0-50.0); HEMOGLOBIN 15.9 g/dl (14.0-18.0); IMMATURE GRANULOCYTES 4.4 % (0.0-5.0); MEAN CELL VOLUME 86.2 fL CALC (80.0-100.0); MEAN CORPUSCULAR HGB 27.7 pG CALC (26.0-32.0); MEAN CORPUSCULAR HGB CONC 32.2 g/dL CAL (32.0-36.0); NEUT# 9.58 thou/uL (1.82-7.42); RED BLOOD COUNT 5.73 mill/uL (4.70-6.10); RED CELL DISTRI WIDTH 14.4 % (11.5-15.5)
[2020-10-17 04:59] LABS: ANION GAP 9 (6-22 (CALC)); BUN 26 mg/dL (8-23); BUN/CREATININE RATIO 26 (12-20 (CALC)); CARBON DIOXIDE 34 mmol/l (22-30); CHLORIDE 100 mmol/l (95-108); GFR > 60 ML/MIN (>=60 (CALC)); GFR FOR AFR.AMER. > 60 ML/MIN (>=60 (CALC)); POTASSIUM 4.4 mmol/l (3.5-5.1); SODIUM 139 mmol/l (137-146)
--- NOTE | 2020-10-17 05:48 | NUR ---
PATIENT WAS BUTTER WRAPPER LIGHT, NEEDED TO USE URINAL, REMAINED ON BIPAP, O2 SATS DROPS TO 75% WITH EXERTION ON BIPAP. RECOVERS TO 91%. LAYS BACK IN PUGA'S POSITION, RESPIRATION RATE 40'S WITH EXERTION. AFEBRILE. URINAL EMPTIED, URINE YELLOW/CLEAR. NO OTHER NEEDS AT THIS TIME.
--- NOTE | 2020-10-17 06:45 | NUR ---
REPORT RECEIVED FROM ORLY REY. CARE ASSUMED.
--- NOTE | 2020-10-17 07:30 | NUR ---
PT RESTING IN BED AWAKE. PT IS ALERT AND ORIENTED X3. SHIFT ASSESSMENT COMPLETED AT THIS TIME. IV PATENT X1. CALL LIGHT IN REACH. WILL CONTINUE TO MONITOR.
--- NOTE | 2020-10-17 07:50 | NUR ---
HAZMAT CDL A DRIVER AT BEDSIDE TO ASSIST PT UP TO CHAIR.
--- NOTE | 2020-10-17 07:59 | NUR ---
RT AT BEDSIDE TO PLACE PT ON VAPOTHERM AND OFF OF BIPAP.
--- NOTE | 2020-10-17 08:01 | NUR ---
BIPAP STANDBY. PLACED ON VAPOTHERM 40L @100%
--- NOTE | 2020-10-17 08:15 | NUR ---
PT ASSISTED BACK TO BED AND PLACED ON BIPAP PER MD.
--- NOTE | 2020-10-17 08:28 | NUR ---
DR PHILLIPS AT BEDSIDE AT THIS TIME.
--- NOTE | 2020-10-17 10:08 | NUR ---
PT UP TO BSC FOR BM.
--- NOTE | 2020-10-17 10:53 | NUR ---
PT UP TO CHAIR FOR LUNCH. PLACED ON VAPOTHERM
--- NOTE | 2020-10-17 10:54 | NUR ---
BIPAP STANDBY. PLACED ON VAPOTHER 40L @ 100%
--- NOTE | 2020-10-17 12:15 | NUR ---
PT SEATED IN RECLINER AT BEDSIDE ON VAPOTHERM TO EAT LUNCH. PT TOLERATING WELL. CALL LIGHT IN REACH. WILL CONTINUE TO MONTIOR.
--- NOTE | 2020-10-17 14:10 | NUR ---
PT SEATED UP IN RECLINER AT THIS TIME. ON VAPOTHERM. NO IDSTRESS NOTED. CALL LIGHT IN REACH. WILL CONTINUE TO MONITOR.
--- NOTE | 2020-10-17 15:36 | NUR ---
pt seated up in recliner at bedside. no distress noted. call light in reach. will continue to montior.
--- NOTE | 2020-10-17 16:49 | NUR ---
PT SET UP FOR A BATH. PT TOLERATED WELL.
--- NOTE | 2020-10-17 17:36 | NUR ---
PT SET UP FOR PM MEAL AT THIS TIME.
--- NOTE | 2020-10-17 19:40 | NUR ---
[id number] sitting in bedside chair. vapotherm conts. states "i'm struggling tonight." pts resp status has deteriorated since last seen by this web content writer. lead quality control technician shows sinus tach pacs pvcs hr 112. #22 saline lock lfa. po fluids taken fair. voids per urinal. fall precautions & negative pressure conts. pt requests bipap on, use bsc then go to bed. rt notified & she put pt on bipap. assisted to bsc for bm then to bed on his left side. xanax 0.25mg po given. pt insisted top right siderail be left down. instructed pt about safety factor. pt said "i haven't fallen out in 5 days." siderail down per pts request.
--- NOTE | 2020-10-17 21:15 | NUR ---
pt called this editorial writer. fan adjusted as requested.
[2020-10-18] VITALS (10 sets, daily range): BP systolic 118–166; BP diastolic 58–99
--- NOTE | 2020-10-18 00:10 | NUR ---
up to bsc. lea fair. desats to 82% with activity while on bipap.
--- NOTE | 2020-10-18 02:10 | NUR ---
up to bsc. lea fair. cont to desat when up. bus driver/monitor shows sinus tach pacs pvcs hr 121.
--- NOTE | 2020-10-18 03:40 | NUR ---
up to bsc. lea fair. cont to desat to 85% with activity while on bipap. residential monitor shows sinus tach pacs pvcs hr 122.
--- NOTE | 2020-10-18 05:20 | NUR ---
[id number] up to bsc. lea fair. o2 cont per bipap. sao2 86% while on bsc. no c/o acute distress.
--- NOTE | 2020-10-18 06:45 | NUR ---
REPORT RECEIVED FROM GREGORIA PEÑA. CARE ASSUMED.
--- NOTE | 2020-10-18 07:00 | NUR ---
PT SITTING UP ON SIDE OF BED AT THIS TIME WITH BIPAP ON. PT IS ALERT AND ORIENTED X3. SHIFT ASSESSMENT COMPLETED AT THIS TIME. IV PATENT X1. CALL LIGHT IN REACH. WILL CONTINUE TO MONTIOR.
--- NOTE | 2020-10-18 08:15 | NUR ---
DR PHILLIPS AT BEDSIDE AT THIS TIME.
--- NOTE | 2020-10-18 08:30 | NUR ---
PT ASSISTED UP TO RECLINER AT BEDSIDE AND PLACED ON VAPOTHERM.
--- NOTE | 2020-10-18 08:50 | NUR ---
PT SET UP FOR AM MEAL.
--- NOTE | 2020-10-18 10:12 | NUR ---
PT SITTING UP IN RECLINER AT BEDSIDE. NO DISTRESS NOTED. CALL LIGHT IN REACH. WILL CONTINUE TO [facility].
--- NOTE | 2020-10-18 12:03 | NUR ---
PT SITTING UP IN RECLINER. EATING LUNCH AT THIS TIME. CALL LIGHT IN REACH. WILL CONTINUE TO MONITOR.
--- NOTE | 2020-10-18 12:10 | NUR ---
INTO ROOM FOR NOON ABT. IV OCCLUDED. #20 STARTED LFA. 2 ATTEMPTS. METOPROLOL GIVEN IV PER MAR FOR HR 120S. BP 140/90. XANAX PROVIDED WELL. PT TOLERATED WELL. CALL LGT IN REACH. WILL CONTINUE TO MONITOR.
--- NOTE | 2020-10-18 13:00 | NUR ---
PT REQUESTING TO GO BACK TO BED TO REST. PT ASSISTED BACK TO BED AND PLACED ON BIPAP.
--- NOTE | 2020-10-18 13:34 | NUR ---
PT SPOUSE CALLED REQUESTING TO VISIT. EXPLAINED THAT DUE TO COVID STATUS VISITORS ARE NOT APPROVED. OFFERECD TO FACTIME OR VIDEO CALL IF POSSIBLE. SPOUSE STATED SHE WAS UNABLE TO DO SO.
--- NOTE | 2020-10-18 14:00 | NUR ---
PT MOVED TO ICU BED 8 VIA BED DUE TO ROOM 1 BEING HOT AND PT EXCESSIVELY SWEATING. PT TOLERATED TRANSFER WELL. PHONED OF PT AND OFFERRED TO COME TO ER PARKING LOT AT 4 AND SEE PT AT WINDOW. CALL LIGHT IN REACH. WILL CONTINUE TO MONITOR.
--- NOTE | 2020-10-18 16:09 | NUR ---
ASSISTED PT UP TO RECLINER ON BIPAP. PLACED ON VAPOTHERM. ON SIDEWALK TO SEE PT THROUGH WINDOW. ASSISTED PT TO STAND UP AT WINDOW. O2 DESATS TO 50S. PT SEATED BACK TO CHAIR AND PLACED ON BIPAP TO RECOVER. PT THANKFUL FOR ASSISTANCE. WILL LEAVE ON BIPAP FOR A WHILE TO RECOVER WELL.
--- NOTE | 2020-10-18 16:20 | NUR ---
O2 SATS 94% ON BIPAP PT REQUESTS TO GO TO VAPOTHERM. PT PLACED ON VAPOTHERM. O2 SATS IN 80S. WILL ALLOW TIME TO RECOVER
--- NOTE | 2020-10-18 16:45 | NUR ---
PT PLACED BACK ON BIPAP FOR LOW O2 SATS.
--- NOTE | 2020-10-18 17:22 | NUR ---
RT AT BEDSIDE TO PLACE PT ON VAPOTHERM FOR PM MEAL
--- NOTE | 2020-10-18 17:47 | NUR ---
PLACED PT ON VAPOTHERM 40L 100%. PT TOLERATING WELL. SITTING IN CHAIR EATING DINNER sO2 90%. PT STATES HE IS FEELING MUCH BETTER TODAY. PT ABLE TO STAY OFF OF BIPAP FOR EXTENDED PERIODS OF TIME. KRISSY CHAND.
--- NOTE | 2020-10-18 18:12 | NUR ---
PT SITTING UP EATING PM MEAL AT THIS TIME. PT TOLERATING WELL.
--- NOTE | 2020-10-18 19:30 | NUR ---
stood to void then became sob. requested bipap. rt notified & bipap was started. pt had also been talking to family on his cell phone. remains in bedside chair. panel monitor shows sinus tach pacs pvcs hr 104. #20 lfa saline lock. voided well per urinal. fall & air/contact precautions cont.
--- NOTE | 2020-10-18 20:40 | NUR ---
sitting in bedside chair. nad. xanax 0.25mg po given for sleep. bipap cont.
--- NOTE | 2020-10-18 21:30 | NUR ---
pt thinks bipap mask is "cracked." rt notified, checked mask & found nothing wrong. rt left & pt requested bipap off. said "i need a break." request denied. remains in bedside chair. pt cont to c/o mask problems. rt notified AGAIN & pt was checked. rt found nothing wrong with mask AGAIN. pt asked to stay in bedside chair for now & would call when ready to go to bed.
--- NOTE | 2020-10-18 23:10 | NUR ---
[id number] assisted to bed. bipap conts. apologized to this advertising copywriter "for my meltdown earlier." pt reassured & is aware of poor condition & physicians order for bipap @ night.
[2020-10-19] VITALS (20 sets, daily range): BP systolic 127–229; BP diastolic 36–116
--- NOTE | 2020-10-19 01:05 | NUR ---
[id number] up to bedside commode. while sitting on bedside commode sao2 dropped to 74%. bipap beeping. has obvious air leak. this financial writer is standing behind pt. pt denies disconnecting bipap. instructed pt this financial writer could hear air leak & all o2 leaking was less he was getting. pt cont to deny disconnecting bipap. instructed pt it was the mask he was holding in one hand & strap he was holding in the other hand. pt reconnected bipap mask then assisted to bed by other nurse. sao2 increased to 92%.
--- NOTE | 2020-10-19 04:00 | NUR ---
eyes closed. bipap cont. cafeteria monitor shows sinus rhythm pacs pvcs hr 99.
--- NOTE | 2020-10-19 06:00 | NUR ---
blood drawn & sent to lab.
[2020-10-19 06:24] LABS: HEMATOCRIT 51.2 % (39.0-50.0); HEMOGLOBIN 16.6 g/dl (14.0-18.0); MEAN CELL VOLUME 85.3 fL CALC (80.0-100.0); MEAN CORPUSCULAR HGB 27.7 pG CALC (26.0-32.0); MEAN CORPUSCULAR HGB CONC 32.4 g/dL CAL (32.0-36.0); NEUT# 14.62 thou/uL (1.82-7.42); RED CELL DISTRI WIDTH 14.9 % (11.5-15.5)
[2020-10-19 07:20] LABS: ANION GAP 13 (6-22 (CALC)); BUN 25 mg/dL (8-23); BUN/CREATININE RATIO 32 (12-20 (CALC)); C-REACTIVE PROTEIN 1.2 mg/dL (0-0.9); CHLORIDE 104 mmol/l (95-108); CREATININE 0.8 mg/dL (0.7-1.3); GFR > 60 ML/MIN (>=60 (CALC)); GFR FOR AFR.AMER. > 60 ML/MIN (>=60 (CALC)); POTASSIUM 4.2 mmol/l (3.5-5.1); SODIUM 139 mmol/l (137-146)
[2020-10-19 07:21] LABS: CARBON DIOXIDE 26 mmol/l (22-30)
--- NOTE | 2020-10-19 07:28 | NUR ---
REPORT RECEIVED FROM MARIANA KINNEY. PT RESTING IN BED ON LEFT SIDE; ALERT AND ORIENTED. PLACED CALL LIGHT TO REQUEST ASSISTANCE TO BSC. ALERT AND OREINTED X 3; BIPAP ON AT 100% FIO2; SPO2 92-93%; RESPIRATIONS ARE LABORED AT 30 PER MINUTE. PT ASSISTED ONTO BSC; EXTREMELY EXERTION SOB; SPO2 DECREASED TO 68% AND UP TO 84% WHEN RECOVERING IN SITTING POSITION. FACIAL FLUSHING AND RESPIRATIONS INCREASED TO 50 PER MINUTE. PRODUCTIVE COUGH WITH THICK YELLOW SPUTUM. BLOOD PRESSURE ELEVATED DURING ACTIVITY. LUNGS ARE CLEAR WITH OCCASIONAL WHEEZING DURING COUGH. DENIES PAIN. POC REVIEWED INCLUDING POSSIBLE NEED FOR INTUBATION; PT RELUCTANT TO HAVE INTUBATION, BUT AGREES IF NECESSARY. SAFETY MEASURES IN PLACE. CALL LIGHT WITHIN REACH.
--- NOTE | 2020-10-19 08:42 | NUR ---
DR. PHILLIPS AT BEDSIDE AND DISCUSSING PLAN OF CARE WITH PATIENT AND DAUGHTER, KIT, VIA TELEPHONE.
--- NOTE | 2020-10-19 10:15 | NUR ---
PT USED CALL LIGHT TO REQUEST A DRINK OF WATER; PROVIDED WITH PO MEDICATION. NEW MED EDUCATION GIVEN FOR CHOLCHICINE. OFFERED PATIENT XANAX AND HE DECLINE; REPORTS THAT HE DOES NOT FEEL THOUGH HE NEEDS ANXIETY MEDICATION AT THIS TIME. 16F HALL CATHETER INSERTED DUE TO RESPIRATORY STATUS AND TO LIMIT EXERTION; PT TOLERATED WELL. IMMEDIATE RETURN OF 275ML OF CLEAR DARK YELLOW URINE. REMAINS ON BIPAP 100% FIO2; SPO2 91-94% AT REST WITH RESPIRATIONS 22-28 PER MINUTE. PT AGAIN HYPERTENSIVE; WILL CONTINUE TO MONITOR.
--- NOTE | 2020-10-19 12:39 | NUR ---
REPOSITIONED INTO HIGH FOWLERS FOR LUNCH. PT MAINTAINING 93-94% ON BIPAP AT REST. PLACED ON VAPOTHERM TO EAT AT 40L 100% FI02; SPO2 CURRENTLY 78%, PT APPEARS MORE ANXIOUS WHEN ON VAPOTHERM AND IS ASKING WHAT HIS SPO2 IS. ENCOURAGED TO RELAX AND PRACTICE DEEP BREATHING BETWEEN SMALL BITES OF FOOD. DIET CHANGED TO MECHANICAL SOFT.
--- NOTE | 2020-10-19 12:46 | NUR ---
BIPAP STANDBY. PT ON VAPOTHERM 40L @ 100%.
--- NOTE | 2020-10-19 13:23 | NUR ---
VAPOTHERM STANDBY. PLACED ON BIPAP.
--- NOTE | 2020-10-19 13:23 | NUR ---
BACK ON BIPAP AFTER EATING; SPO2 UP TO 92%. XANAX GIVEN PRIOR TO RETURNING TO BIPAP. RT AT BEDSIDE.
--- NOTE | 2020-10-19 14:00 | NUR ---
UP TO BSC FOR MODERATE SOFT BOWEL MOVEMENT; STAYS ON BSC FOR 15-20 MINUTES; ENCOURAGED PT TO HAVE MINIMAL EXERTION. ASSISTED BACK INTO BED. IV SITE APPEARS HEALTHY AND FLUSHES.
--- NOTE | 2020-10-19 16:31 | NUR ---
UP TO BSC AGAIN FOR MODERATE LOOSE BOWEL MOVEMENT. CONDITION REMAINS THE SAME. HALL CATHETER DRAINING CLEAR, DARK YELLOW URINE IN ADEQUATE AMOUNTS. CALL LIGHT WITHIN REACH.
--- NOTE | 2020-10-19 18:16 | NUR ---
SITTING UP ON EDGE OF BED ON VAPOTHERM FOR DINNER. UP TO BSC PRIOR TO POSITION CHANGE. BLOOD PRESSURE ELEVATED DUE TO ACTIVITY; TACHYCARDIC WELL. WILL CONTINUE TO MONITOR.
--- NOTE | 2020-10-19 19:15 | NUR ---
PATIENT SITS ON SIDE OF BED ON VAPOTHERM 40 L/MIN, 100%. RESPIRATION RATE IN 40'S, SHALLOW, O2 SATS 87%-88%, SITTING WITH NO EXERTION. IF HE STARTS TO MOVE OR TALK HE DESATS TO 83% ON VAPOTHERM. NURSE ASSESSMENT PERFORMED. POC DISCUSSED. PATIENT REQUESTS TO BE BACK ON BIPAP AND LAY DOWN. ON BIPAP WITH FIO2 100%. RESPIRATION RATE DOWN TO 30'S, SPO2 91% WHEN RESTING. TACHYCARDIC LOW 100'S WITH EXERTION. LFA IV INTACT, FLUSHES PROPERLY, SALINE LOCKED. HALL CATHETER INTACT, URINE YELLOW/CLEAR. REQUESTS MORE MOUTH MOISTERIZER, WILL PROVIDE. ATE ABOUT 50% OF DINNER, DRANK ALL OF TEA. HAS A PRODUCTIVE/YELLOW/THICK COUGH. NO COMPLAINTS OF PAIN. LAYS IN PUGA'S. CALL LIGHT WITHIN REACH.
--- NOTE | 2020-10-19 20:08 | NUR ---
PATIENT LAYS IN PUGA'S POSITION, RESTS WITH EYES CLOSED, O2 SAT 96%, HR 80'S-90'S. RESP RATE 20'S.
--- NOTE | 2020-10-19 21:23 | NUR ---
PATIENT FLARE BREAKER LIGHT REQUESTS TO USE BSC. ASSISTED WITH SITTING ON BSC. CONTINUES TO BE ON BIPAP, WITH EXERTION ND TALKING HE DESATS TO 79%. WAS ENCOURAGED TO DEEP BREATHE. CALL LIGHT WITHIN REACH.
--- NOTE | 2020-10-19 21:57 | NUR ---
PATIENT CONTINUES TO SIT ON BSC, REPORTS HE DOESN'T KNOW IF HE IS FINISHED WITH BM. WITH EXERTION PATIENT DESATS TO 78%, AND RECOVERS TO 87%.
--- NOTE | 2020-10-19 22:26 | NUR ---
PATIENT WAS ASSISTED BACK TO BED. [facility] MOISTERIZER PROVIDED. HAD A SMALL DARK GREEN BM, BRIGHT REC DBLOOD NOTED WHICH IS NOT NEW. NO COMPLAINTS OF PAIN, WATER PROVIDED WITH MEDS. CALL LIGHT WITHIN REACH.
[2020-10-20] VITALS (20 sets, daily range): BP systolic 130–182; BP diastolic 82–115
--- NOTE | 2020-10-20 01:03 | NUR ---
PATIENT UP TO BSC, O2 SATS DROPPED LOW 74% ON BIPAP, PATIENT WAS INSTRUCTED TO BREATHE, STOP EXERTING HIMSELF. PATIENT WAS INSTRUCTED EACH TIME TO RELAX AND BREATHE, WAIT FOR O2 SATS TO INCREASE TO 90% AND ABOVE FOR HIM TO CONTINUE TO WIPE HIMSELF, CLEAN HIS HANDS, GO BACK TO BED, OR CONTINUE TALKING. PATIENT DOES NOT FOLLOW DIRECTIONS AT TIMES. NOW BACK TO BED, O2 SATS 88%-92%.
--- NOTE | 2020-10-20 01:12 | NUR ---
PATIENT GIVEN LOVENOX INJECTION, IV FLUIDS INFUSING ORDERED. EDUACTED ON MEDICATIONS. UP TO BSC, NOW SAFELY BACK IN BED. WAS ABLE TO EAT MOST OF HOT MEAL AND DRINK HER DIET COKE. DENIES DIZZINESS OR SOB UPON STANDING, DENIES CHEST PAIN. BP 90'S SYSTOLIC, WILL CONTINUE TO MONITOR.
--- NOTE | 2020-10-20 01:22 | NUR ---
RT MARIO CALLED DUE TO PATIENT'S BIPAP CONTINUOUSLY BEEPING, O2 SATS 92%, RT IN ROOM NOW.
--- NOTE | 2020-10-20 03:20 | NUR ---
PATIENT GIVEN IV APRESOLINE PRN FOR SBP GREATER THAN 170 MMHG. PATIENT ALSO ASSISTED TO BSC, O2 SATS DROP TO 70'S. SITTING IN RECLINER NOW, WILL CONTINUE TO MONITOR.
--- NOTE | 2020-10-20 03:50 | NUR ---
PATIENT ASSISTED BACK TO BED. PATIENT'S HEART RTE UP TO 130'S, RESP RATE LABORED AT HIGH 40'S. O2 SAT LOW IN 60'S-70'S. PATIENT SLOWLY RECOVERED TO 88%, RESP RATE 30'S WHEN BACK IN BED, EMOTIONAL SUPPORT GIVEN, WAS ABLE TO CALM.
--- NOTE | 2020-10-20 05:01 | NUR ---
PATIENT MASH FILTER OPERATOR LIGHT, REQUESTS BLANKET. WARM BLANKET PROVIDED.
--- NOTE | 2020-10-20 06:06 | NUR ---
IN ROOM TO EMPTY HALL CATHETER AND PROVIDE ICED WATER, PATIENT REQUESTS TO GO TO BSC, JUST BY SPEAKING AND MINIMAL EXERTION , PATIENT RESP RATE 50'S, HR UP TO 120'S AND BP 170/87 MMHG, RECOMMENDED BEDPAN AFTER EXPLAINING HOW HE DESATS ALONG WITH INCREASE IN BP, HR AND, RESP RATE, PATIENT REFUSES BEDPAN. DECIDES HE WILL WAIT. WILL CONTINUE TO MONITOR.
[2020-10-20 06:08] LABS: HEMATOCRIT 49.1 % (39.0-50.0); HEMOGLOBIN 16.2 g/dl (14.0-18.0); IMMATURE GRANULOCYTES 1.8 % (0.0-5.0); MEAN CELL VOLUME 85.5 fL CALC (80.0-100.0); MEAN CORPUSCULAR HGB 28.2 pG CALC (26.0-32.0); NEUT# 13.83 thou/uL (1.82-7.42); RED BLOOD COUNT 5.74 mill/uL (4.70-6.10); RED CELL DISTRI WIDTH 14.9 % (11.5-15.5)
[2020-10-20 06:28] LABS: ALBUMIN 3.8 g/dL (3.2-5.0); ALKALINE PHOSPHATASE 182 u/l (38-126); ANION GAP 11 (6-22 (CALC)); BUN 23 mg/dL (8-23); BUN/CREATININE RATIO 35 (12-20 (CALC)); CARBON DIOXIDE 28 mmol/l (22-30); CHLORIDE 103 mmol/l (95-108); CREATININE 0.7 mg/dL (0.7-1.3); GFR > 60 ML/MIN (>=60 (CALC)); GFR FOR AFR.AMER. > 60 ML/MIN (>=60 (CALC)); POTASSIUM 4.1 mmol/l (3.5-5.1); SODIUM 137 mmol/l (137-146)
--- NOTE | 2020-10-20 06:40 | NUR ---
PT RECIEVED ON ALL DOCUMENTED PARAMETERS. ASLEEP, COMFORTABLE. NAD. VSS. AGRICULTURAL SCIENCE PROFESSOR TO MONITOR.
[2020-10-20 06:42] LABS: SGOT/AST 74 u/l (19-48)
--- NOTE | 2020-10-20 07:20 | NUR ---
PT REPORT RECEIVED FROM SOFTWARE DESIGN ANALYST. PT IN BED , REMAINS ON BIPAP.
--- NOTE | 2020-10-20 08:50 | NUR ---
PLACED PT ON VAPOTHERM PER PT REQUEST FOR BREAKFAST. PT SPO2 TO 90. NAD. VSS. MANAGER FRONT TO MONITOR. RN IN ROOM WELL.
--- NOTE | 2020-10-20 09:40 | NUR ---
CHNAGED HUMIDIFICATION RESEVOIR.
--- NOTE | 2020-10-20 10:00 | NUR ---
PT SWITCHED FROM BIPAP TO VAPOTHERM, OXYGEN SATS DROPPED TO MID 70'S, PT BEGAN TO PANIC, AND STARTED WITH SHALLOW RAPID BREATHING. ADVISED TO SLOW DOWN RESP AND SATS WILL COME BACK, PT STARTED SAYING , JUST PUT ME BACK ON MACHINE, JUST PUT ME BACK ON MACHINE. RESP TECH CALLED AND SPOKE WITH PT, TRYING TO CALM PT DOWN, AFATER APPROX 15 MIN, SATS STARTED COMING UP TO MID 80'S. PT BEGAN TO CALM DOWN AND STATES WILL JUST TRY TO STAY ON VAPOTHERM FOR AWHILE NOW.
--- NOTE | 2020-10-20 11:11 | NUR ---
PT RESTING COMFORTABLY ON VAPOTHERM. NO ACUTE DISTRESS. ASSEMBLER AND TESTER ELECTRONICS TO MONITOR.
--- NOTE | 2020-10-20 13:40 | NUR ---
PLACED PT ON BIPAP PER PT REQUEST. NAD. VSS. PT APPEARS WITH INCREASED RR AND RAPID SHALLOW BREATHING ON VAPOTHERM.
--- NOTE | 2020-10-20 15:05 | NUR ---
PT SITTING UP IN CHAIR WITH BIPAP ON, SATS IN THE HIGH 80'S, LOW 90'S.
--- NOTE | 2020-10-20 17:13 | NUR ---
PTS AT BEDSIDE.
--- NOTE | 2020-10-20 17:13 | NUR ---
PT PLACED ON VAPOTHERM PER PT, FAMILY AND ADMIN REQUEST. PRINCIPAL JAVA DEVELOPER EXPLAINED TO PT THE PROS AND CONS OF BEING PLACED ON VAPOTHERM AT THIS JUNCTURE. PT VERBALIZED UNDERSTANDING, AND WISHED TO PROCEED WITH VAPOTHERM. PRINCIPAL JAVA DEVELOPER AND RN PLACED PT ON VAPOTHERM. PRINCIPAL JAVA DEVELOPER AND RN TO MONITOR.
--- NOTE | 2020-10-20 18:07 | NUR ---
PT SITTING UP IN RECLINER, BRUSHING TEETH AND TAKING A PARTIAL BATH, BED LINEN CHANGED. PT APPEARS TO BE IN A BETTER UPLIFTED MOOD SINCE VISITING WITH . ATE APPROX 50% OF MEAL, ASKED IF I COULD TRY AND MAKE HIM A CHOCOLATE MILKSHAKE, WHICH I DID AND HE DRANK ALL OF IT. SATS REMAIN IN THE MID TO UPPER 80'S ON VAPOTHERM, AND HE DENIES FEELING SOB DURING THIS TIME. PT IS SMILING AND TALKING.
--- NOTE | 2020-10-20 19:39 | NUR ---
PATIENT IS AWAKE, ORIENTED X4. ON VAPOTHERM FIO2 100%, 40 L/MINUTE, RESP. RATE 30'S. O2 SATS 83%-90%. CONTINUES TO DESAT WITH EXERTION OR WHEN HE SPEAKS. NO COMPLAINTS OF PAIN. CUP PROVIDED FOR WATER. LFA 20 G IV INTACT, FLUSHES AND RETURNS BLOOD, SALINE LOCKED. HALL CATHETER INTACT, URINE DARK YELLOW/SEDIMENT. ST ON TELEMETRY, HR LOW 100'S. BP 130'S SYSTOLIC. CONTINUES TO HAVE PRODUCTIVE COUGH, YELLOW/THICK. POC DISCUSSED. SITS IN RECLINER. NURSE ASSESSMENT PERFORMED. CALL LIGHT WITHIN REACH.
--- NOTE | 2020-10-20 19:54 | NUR ---
PLACED NEW LEADS ON PATIENT DUE TO LEADS FAILING, PATIENT ALSO SATING AT 82%, NOTIFIED PATIENT IF O2 NOT INCREASING WE WILL PLACE ON BIPAP, PATIENT AGREES. WAS DIRECTED TO TAKE SLOW, DEEP BREATHES. CONTINUES TO SIT IN RECLINER.
--- NOTE | 2020-10-20 20:40 | NUR ---
PATIENT DESATTED TO 79% WHEN SITTING IN RECLINER, I OFFERED THE BIPAP, PATIENT ACCEPTS. PLACED ON BIPAP FIO2 100%. PATIENT BECAME SEVERLEY EXERTED WHEN TRANSFERRING FROM RECLINER TO BED, HR 120'S, BP ELEVATED GREATER THAN 170 MMHG SYSTOLIC, O2 SAT DROPPED TO 60'S. PATIENT WAS INSTRUCTED TO RELAX MIND AND FOCUS ON BREATHING, NOT TO SPEAK OR CONTINUE TO MAKE DRASTIC MOVEMENTS, SLOWLY STARTED TO RECOVER O2 SATS 90%-93%, LAYS IN PUGA'S. ALL REQUESTS, SUCH , MOUTH MOISTERIZER, DRY WASH CLOTH, 2 CUPS OF WATER, CELPHONE CHARGING AT TABLESIDE WITHIN REACH. RT ALSO CALLED TO NOTIFY OF PLACING PATIENT ON BIAPA.
--- NOTE | 2020-10-20 22:00 | NUR ---
PATIENT WAS ABLE TO SWALOOW HIS BEDTIME MEDICATION, TOLERATED LOVENOX INJECTION, PROVIDED ATIVAN FOR HIM TO BE ABLE TO REST WITH BIPAP. RESP RATE 30'S, SHALLOW, BP 150'S SYSTOLIC, HR LOW 100'S, NO NEEDS OR COMPLAINTS AT THIS TIME. CALL LIGHT WITHIN REACH.
[2020-10-21] VITALS (13 sets, daily range): BP systolic 108–166; BP diastolic 67–104
--- NOTE | 2020-10-21 00:19 | NUR ---
patient lays in torrez's, continues to be on bipap, o2 sats 90%-93%. resp rate 27-30's, shallow. call light within reach. will continue to monitor.
--- NOTE | 2020-10-21 03:00 | NUR ---
PATIENT IS AWAKE, CONTINUES TO BE ON BIPAP, FIO2 100%, O2 SATS UP TO 93% WHEN RESTING WITH NO EXERTION, LAYS ON HIS LEFT SIDE. REPORTS HE HAS BEEN PASSING GAS, WAS CHECKED IF ANY INCONTINENCE, NO BM NOTED. WAS WIPED WITH WARM WASH CLOTH PER REQUEST. SCANT AMOUNT OF RED BLOOD FROM HEMORRHOIDS NOTED. AFEBRILE. DRINKS WATER. NO OTHER NEEDS OR REQUESTS AT THIS TIME.
--- NOTE | 2020-10-21 04:53 | NUR ---
COPY MANAGER IN ROOM FOR AM LABS
[2020-10-21 05:13] LABS: HEMATOCRIT 48.6 % (39.0-50.0); HEMOGLOBIN 15.5 g/dl (14.0-18.0); IMMATURE GRANULOCYTES 1.7 % (0.0-5.0); MEAN CELL VOLUME 86.8 fL CALC (80.0-100.0); MEAN CORPUSCULAR HGB 27.7 pG CALC (26.0-32.0); MEAN CORPUSCULAR HGB CONC 31.9 g/dL CAL (32.0-36.0); NEUT# 10.49 thou/uL (1.82-7.42); RED BLOOD COUNT 5.6 mill/uL (4.70-6.10); RED CELL DISTRI WIDTH 15.5 % (11.5-15.5)
[2020-10-21 05:29] LABS: ANION GAP 9 (6-22 (CALC)); BUN 22 mg/dL (8-23); BUN/CREATININE RATIO 22 (12-20 (CALC)); C-REACTIVE PROTEIN 0.8 mg/dL (0-0.9); CARBON DIOXIDE 32 mmol/l (22-30); CHLORIDE 99 mmol/l (95-108); GFR > 60 ML/MIN (>=60 (CALC)); GFR FOR AFR.AMER. > 60 ML/MIN (>=60 (CALC)); POTASSIUM 4.2 mmol/l (3.5-5.1); SODIUM 137 mmol/l (137-146)
--- NOTE | 2020-10-21 06:21 | NUR ---
RECIEVED PT ON ALL DOCUMENTED PARAMETERS. PT RESTING COMFORTABLY IN BED. NO ACUTE DISTRESS NOTED. VITAL SIGNS STABLE. SOCIAL MEDIA MARKETER TO MONITOR. NO CHANGES AT THIS TIME.
--- NOTE | 2020-10-21 08:33 | NUR ---
PT PLACED ON APOTHERM ER REQUEST TO SIT IN CHAIR AND ATTEMPT TO CONSUME BREKFAST. PT SPO2 DIMINISHED TO 70S AND IS SLOWLY REBOUNDING TO NORMAL LIMITS. PT STATES HE FEELS OK T THIS TIME. RN AWARE. STREET LIGHT SERVICER SUPERVISOR TO MONITOR.
--- NOTE | 2020-10-21 08:58 | NUR ---
PT PLACED BACK ON BIPAP PER MD REQUEST. PT ARTHUR WELL AT THIS TIME. PT IN RECLINER AT BEDSIDE, RESTING COMFORTABLY. SPO2 INCREASING SLOWLY. REMOTELY OPERATED VEHICLE TO MONITOR. INCREASED BIPAP SETTINGS PER PT COMFORT.
--- NOTE | 2020-10-21 09:00 | NUR ---
PT SEEN AWAKE, ALERT, ORIENTED X 3. LUNGS ARE CLEAR, BUT PT IS ON BIPAP AND LABORS WITH RESPIRATIONS. SATURATIONS REMAIN BARELY 90s ON BIPAP AND LOW 80s WITH VAPOTHERM. DR PHILLIPS HAS SEEN PT, ORDERS CONSULTS. NO ACUTE DISTRESS IN PT WHO LABORS WITH BREATHING.
--- NOTE | 2020-10-21 12:30 | NUR ---
PT IN CHAIR AT BEDSIDE, SWITCHES BETWEEN BiPAP AND VAPOTHERM DESIRED. PT WITH SHALLOW BREATHS, TACHYPNEIC IN [address] JORGE CONSULTED TODAY, WILL LOOK OVER REPORTS TO SEE IF ANYTHING CAN BE CHANGED THAT WILL HELP.
--- NOTE | 2020-10-21 15:00 | NUR ---
PT RESTING COMFORTABLY IN CHAIR AT BEDSIDE. NO ACUTE DISTRESS NOTED AT THIS TIME. PT ARTHUR BIPAP WELL AT THIS TIME. HEAD IRRIGATOR TO MONITOR. NO CHANGES IN NIV PARAMETERS AT THIS TIME.
--- NOTE | 2020-10-21 18:17 | NUR ---
PT BACK TO VAPOTHERM FOR DINNER, SATS REMAIN UPPER 80s, HR 110-120. PT STATES THAT HE HAS HAD A GOOD AFTERNOON.
--- NOTE | 2020-10-21 20:10 | NUR ---
sitting in bedside chair. vapotherm cont 40 liters 100%. resps rapid but denies distress. lunchroom monitor shows sinus tach pacs pvcs hr 116. #20 lfa saline lock. po fluids taken well. higgins cath in place. urine clear yellow. fall & air/contact precautions cont.
--- NOTE | 2020-10-21 20:37 | NUR ---
PT PLACED BACK ON BIPAP.
--- NOTE | 2020-10-21 22:00 | NUR ---
eyes closed. bus monitor shows sinus rhythm pacs pvcs hr 94.
[2020-10-22] VITALS (12 sets, daily range): BP systolic 114–166; BP diastolic 80–100
--- NOTE | 2020-10-22 00:01 | NUR ---
eyes closed. bipap conts. higgins draining well.
--- NOTE | 2020-10-22 02:00 | NUR ---
resting quietly. resps unlabored. bipap conts.
--- NOTE | 2020-10-22 05:00 | NUR ---
lab here. blood drawn.
--- NOTE | 2020-10-22 05:15 | NUR ---
up to bsc. desats to 81% with bipap on then recovers to 90%.
[2020-10-22 05:25] LABS: HEMATOCRIT 51.8 % (39.0-50.0); HEMOGLOBIN 16.9 g/dl (14.0-18.0); IMMATURE GRANULOCYTES 1.6 % (0.0-5.0); MEAN CELL VOLUME 84.6 fL CALC (80.0-100.0); MEAN CORPUSCULAR HGB 27.6 pG CALC (26.0-32.0); MEAN CORPUSCULAR HGB CONC 32.6 g/dL CAL (32.0-36.0); NEUT# 13.36 thou/uL (1.82-7.42); RED BLOOD COUNT 6.12 mill/uL (4.70-6.10); RED CELL DISTRI WIDTH 16.1 % (11.5-15.5)
[2020-10-22 05:51] LABS: ALKALINE PHOSPHATASE 180 u/l (38-126); ANION GAP 12 (6-22 (CALC)); BUN 20 mg/dL (8-23); BUN/CREATININE RATIO 28 (12-20 (CALC)); CARBON DIOXIDE 26 mmol/l (22-30); CHLORIDE 101 mmol/l (95-108); CREATININE 0.7 mg/dL (0.7-1.3); GFR > 60 ML/MIN (>=60 (CALC)); GFR FOR AFR.AMER. > 60 ML/MIN (>=60 (CALC)); SGOT/AST 79 u/l (19-48); SODIUM 136 mmol/l (137-146); TOTAL PROTEIN 7.4 g/dL (6.3-8.2)
--- NOTE | 2020-10-22 06:37 | NUR ---
PT RESTING COMFORTABLY AT THIS TIME. NO ACUTE DISTRESS. VITAL SIGNS MAINTAINING. PT RECIEVED ON ALL DOCUMENTED PARAMETERS. NO CHANGES AT THIS TIME. WINDOWS APPLICATION ADMINISTRATOR TO MONITOR.
--- NOTE | 2020-10-22 07:16 | NUR ---
PT REPORT RECEIVED FROM MEDICAL SCIENCE LIAISON, NO CHANGE IN PT STATUS, PT AT THIS TIME IS ON BIPAP WITH O2 SATS AT 94%, PT ALERT/ORIENTED X3.
--- NOTE | 2020-10-22 07:46 | NUR ---
PT UP TO COMMODE WITH ASSISTANCE. SATS IMMEDIATELY DROPPING TO THE MID 80'S.
--- NOTE | 2020-10-22 11:03 | NUR ---
PT RESTING COMFORTABLY IN BED ON BIPAP. NO ACUTE DISTRESS NOTED AT THIS TIME. VSS. PERFORMANCE ANALYST TO MONITOR.
--- NOTE | 2020-10-22 12:05 | NUR ---
pt sitting up in recliner. requesting vapotherm to be placed on.
--- NOTE | 2020-10-22 12:16 | NUR ---
PLACED PT ON VAPOTHERM PER PT REQUEST.
--- NOTE | 2020-10-22 12:35 | NUR ---
PT PLACED ON VAPOTHERM AT THIS TIME. SPO2 DECREASED YET SLOWLY REBOUNDING. PT A/O AND RESPONDING TO QUESTIONS/CONVERSATION APPROPRIATELY. RN AWARE. LAB ANIMAL TECHNOLOGIST TO MONITOR.
--- NOTE | 2020-10-22 12:58 | NUR ---
PT REMAINS SITTING UP IN RECLINER, TALKING ON PHONE, SMILING AND LAUGHING. SATS IN THE HIGH 80'S WITH VAPOTHERM ON.
--- NOTE | 2020-10-22 15:31 | NUR ---
PT ASLEEP IN RECLINER. NO ACUTE DISTRESS NOTED. ADMINISTRATIVE JOB TITLES TO MONITOR.
--- NOTE | 2020-10-22 16:40 | NUR ---
PT SITTING UP IN RECLINER, DENIES ANY DISTRESS AT THIS TIME. DENIES WANTING THE BIPAP ON.
--- NOTE | 2020-10-22 17:48 | NUR ---
PT REMAINS SITTING UP IN RECLINER, VAPOTHERM ON SATS 90%, PT ALERT/ORIENTED X3, TALKING ON PHONE
--- NOTE | 2020-10-22 18:45 | NUR ---
PT PLACED BACK ON BIPAP. PT VERY TACHYPNEIC WITH RR OF 50, HR 124, SPO2 DOWN TO 74% ON 100% VAOPTHERM CANNULA.
--- NOTE | 2020-10-22 19:20 | NUR ---
sitting in bedside chair. bipap cont. resps rapid & shallow. pt desats to 85% with activity. lunchroom monitor shows sinus tach pacs pvcs hr 120. #20 lfa saline lock. po fluids taken fair. higgins cath in place. urine yellow. spoke to pt @ length about resp status, bipap settings & possible need for intubation. pt verbalized understanding. fall & air/contact precautions cont.
--- NOTE | 2020-10-22 19:45 | NUR ---
assisted to bed per traffic operator. bipap cont. hob 30 degrees. instructed pt hob is to be flat & to lay on his side since he can't lay in prone position. pt verbalized understanding. ativan 1mg ivp given per request for sleep.
--- NOTE | 2020-10-22 19:50 | NUR ---
eyes closed. hob remains @ 30 degrees. bipap cont.
--- NOTE | 2020-10-22 22:00 | NUR ---
eyes closed. bipap cont. pt appears relaxed. chief science officer shows sinus rhythm pvcs hr 98.
[2020-10-23] VITALS (21 sets, daily range): BP systolic 100–147; BP diastolic 51–93
--- NOTE | 2020-10-23 00:01 | NUR ---
eyes closed. no distress. bipap cont. higgins draining well.
--- NOTE | 2020-10-23 02:00 | NUR ---
resting quietly. resps even & unlabored. bipap cont. cardiac surgeon shows sinus rhythm hr 96.
--- NOTE | 2020-10-23 04:30 | NUR ---
lab here. blood drawn.
[2020-10-23 05:01] LABS: HEMATOCRIT 49.3 % (39.0-50.0); HEMOGLOBIN 16.1 g/dl (14.0-18.0); IMMATURE GRANULOCYTES 1.4 % (0.0-5.0); MEAN CORPUSCULAR HGB 28.1 pG CALC (26.0-32.0); MEAN CORPUSCULAR HGB CONC 32.7 g/dL CAL (32.0-36.0); NEUT# 13.24 thou/uL (1.82-7.42); RED BLOOD COUNT 5.73 mill/uL (4.70-6.10); RED CELL DISTRI WIDTH 16.1 % (11.5-15.5)
[2020-10-23 05:34] LABS: ALBUMIN 3.8 g/dL (3.2-5.0); ALKALINE PHOSPHATASE 139 u/l (38-126); ANION GAP 13 (6-22 (CALC)); BILIRUBIN, TOTAL 0.8 mg/dL (0.0-1.4); BUN 30 mg/dL (8-23); BUN/CREATININE RATIO 33 (12-20 (CALC)); C-REACTIVE PROTEIN 0.6 mg/dL (0-0.9); CARBON DIOXIDE 29 mmol/l (22-30); CHLORIDE 100 mmol/l (95-108); CREATININE 0.9 mg/dL (0.7-1.3); GFR > 60 ML/MIN (>=60 (CALC)); GFR FOR AFR.AMER. > 60 ML/MIN (>=60 (CALC)); SGOT/AST 85 u/l (19-48); SODIUM 138 mmol/l (137-146)
--- NOTE | 2020-10-23 07:07 | NUR ---
PT REPORT RECEIVED, PT REMAINS SLEEPING, VITAL SIGNS STABLE. PT REMAINS ON BIPAP.
--- NOTE | 2020-10-23 07:49 | NUR ---
PT AWAKE AT THIS TIME, STATES SLEPT MUCH BETTER LAST NIGHT THAN HE HAS, SATS WITH BIPAP ARE 94-97%.
--- NOTE | 2020-10-23 08:08 | NUR ---
BIPAP STANDBY. PLACED ON VAPOTHERM.
--- NOTE | 2020-10-23 08:10 | NUR ---
REMOVED PT OFF OF BIPAP AND PLACED ON VAPOTHERM, SATS DROPPED DOWN TO MID 70'S AND WENT BACK INTO MID 80'S, FASTER THAN YESTERDAY. PT REMAINS IN BED RESTING.
--- NOTE | 2020-10-23 11:32 | NUR ---
PT SITTING UP IN RECLINER EATING LUNCH. SATS IN THE LOW TO MID 80'S. WATCHING TV. STATES FEELS BETTER THAN YESTERDAY,
--- NOTE | 2020-10-23 14:40 | NUR ---
PT PLACED BACK IN BED PER PT REQUEST. SATS REMAIN 84% ON VAPOTHERM
--- NOTE | 2020-10-23 15:22 | NUR ---
PT LAYING IN BED RESTING WITH VAPOTHERM STILL ON. SATS REMAIN 93%. APPEARS TO BE TIRED, ASKED IF HE WANTED HIS ATIVAN, HE STATES NO NOT AT THIS TIME.
--- NOTE | 2020-10-23 16:46 | NUR ---
PT REMAINS IN BED ON VAPOTHERM, SATS 93%, WATCHING TV AT THIS TIME, DOES NOT APPEAR TO BE IN SEVERE DISTRESS AT THIS TIME. ALERT/ORIENTED X3.
--- NOTE | 2020-10-23 17:52 | NUR ---
PT REQUESTING TO SIT UP IN RECLINER TO EAT SUPPER. GOT UP ON OWN WITH NO HELP, SATS DROPPED TO 79 BUT WITHIN 5 MIN AND GONE BACK UP TO 87%. PT STATES IS NOT FEELING SOB YESTERDAY AND THAT HE HAD A GOOD NAP
--- NOTE | 2020-10-23 20:00 | NUR ---
assisted to bed per digital account manager. lea well.
--- NOTE | 2020-10-23 20:00 | NUR ---
sitting in bedside chair. pt looks better tonight. appears rested. vapotherm conts 40 liters 100%. denies resp distress. maintenance manager shows sinus rhythm pacs pvcs hr 96. #20 lfa saline lock. po fluids taken fair. higgins cath in place. urine cloudy yellow. fall & air/cont precautions cont.
--- NOTE | 2020-10-23 22:50 | NUR ---
lying quietly on rt side. rt attempted to put bipap on. pt requested for vapotherm to cont & bipap to stay off. said "i'm breathing ok." request denied. instructed pt about physicians request to be on bipap @ night. pt verbalized understanding. bipap on per rt. ativan 1mg ivp given for sleep/anxiety.
--- NOTE | 2020-10-23 23:00 | NUR ---
eyes closed @ present.
[2020-10-24] VITALS (20 sets, daily range): BP systolic 100–160; BP diastolic 61–102
--- NOTE | 2020-10-24 00:01 | NUR ---
lying on rt side. no resp diff. bipap cont. monitor worker shows sinus rhythm pacs pvcs hr 96.
--- NOTE | 2020-10-24 02:00 | NUR ---
restig quietly. resps unlabored. cardiac nurse specialist shows sinus rhythm pacs pvcs hr 76.
--- NOTE | 2020-10-24 04:30 | NUR ---
lab here. blood drawn.
[2020-10-24 04:51] LABS: HEMATOCRIT 50.2 % (39.0-50.0); HEMOGLOBIN 16.1 g/dl (14.0-18.0); MEAN CELL VOLUME 87.2 fL CALC (80.0-100.0); MEAN CORPUSCULAR HGB CONC 32.1 g/dL CAL (32.0-36.0); RED BLOOD COUNT 5.76 mill/uL (4.70-6.10); RED CELL DISTRI WIDTH 16.4 % (11.5-15.5)
[2020-10-24 05:11] LABS: ALBUMIN 3.6 g/dL (3.2-5.0); ALKALINE PHOSPHATASE 119 u/l (38-126); ANION GAP 13 (6-22 (CALC)); BILIRUBIN, TOTAL 0.9 mg/dL (0.0-1.4); BUN 38 mg/dL (8-23); BUN/CREATININE RATIO 44 (12-20 (CALC)); CARBON DIOXIDE 26 mmol/l (22-30); CHLORIDE 103 mmol/l (95-108); CREATININE 0.9 mg/dL (0.7-1.3); GFR > 60 ML/MIN (>=60 (CALC)); GFR FOR AFR.AMER. > 60 ML/MIN (>=60 (CALC)); POTASSIUM 4.1 mmol/l (3.5-5.1); SGOT/AST 81 u/l (19-48); SODIUM 138 mmol/l (137-146); TOTAL PROTEIN 6.7 g/dL (6.3-8.2)
--- NOTE | 2020-10-24 07:31 | NUR ---
BIPAP STANDBY. PLACED ON VAPOTHERM 40L @ 100%.
--- NOTE | 2020-10-24 07:53 | NUR ---
PT AWAKE, ALERT, ORIENTED X 3. PT RESTED WITH BiPAP MOST OF THE NIGHT, NOW SWITCHED TO VAPOTHERM FOR BREAKFAST. NO COMPLAINTS, NO DISTRESS NOTED.
--- NOTE | 2020-10-24 11:32 | NUR ---
BIPAP STANDBY. PT ON VAPOTHERM 40L @100%.
--- NOTE | 2020-10-24 11:39 | NUR ---
ASSISTED PT WITH WASHING UP. LINEN CHANGED. 700 CLEAR YELLOW URINE FROM HALL. TUBING REMIANS PATENT.
--- NOTE | 2020-10-24 12:15 | NUR ---
PT HAS BEEN OOB IN CHAIR AT BEDSIDE, WHERE HE WAS ASSISTED WITH BATH BY CIARRA PEÑA. HIS SATS ARE LOW 90s. PT REMAINS TACHYPNEIC IN THE 35-45 RANGE.
--- NOTE | 2020-10-24 16:21 | NUR ---
PT HAD NAP THIS AFTERNOON, SATS REMAINED 91-94% ON VAPOTHERM.
--- NOTE | 2020-10-24 18:13 | NUR ---
PT REMAINS BEFORE, VAPOTHERM IN PLACE WHILE HE EATS SUPPER, SATS FROM UPPER 80s TO LOW 90s.
--- NOTE | 2020-10-24 19:25 | NUR ---
PATIENT IS AWAKE, ORIENTED X4, SITS IN RECLINER, ON VAPOTHERM 40 L/MIN, AND FIO2 100%, WHEN HE SPEAKS OR WITH EXERTION HE DESATS TO 89%-90%, SHALLOW BREATHING. NURSE ASSESSMENT PERFORMED. LAC 20 G IV INTACT, FLUSHES PROPERLY, SALINE LOCKED. HALL CATHETER INTACT, URINE YELLOW/CLEAR. ST ON TELEMETRY, HR LOW 100'S, BP WNL, AFEBRILE. ENCOURAGED FLUTTER VALVE AND INCENTIVE SPIROEMTER, REQUESTED PUDDING, PROVIDED.
--- NOTE | 2020-10-24 20:05 | NUR ---
PATIENT UP TO BSC, DESATS TO 82%-87%. SCHOOL ADMINISTRATOR ANTHONY IN ROOM TO ASSIST OFF OF BSC.
--- NOTE | 2020-10-24 21:41 | NUR ---
TYLENOL PROVIDED PER REQUEST DUE TO PAIN IN BACK. LOVENOX INJECTION PROVIDED. PATIENT REQUESTS HIS EYED ROPS AND CHAPSTICK AT BEDSIDE TABLE, PROVIDED. 2 CUPS OF WATER AT BEDSIDE. O2 SATS 95% RETSING, RESP RATES 29-30'S AT REST, SHALLOW. NO OTHER NEEDS AT THIS TIME. CALL LIGHT WITHIN REACH.
--- NOTE | 2020-10-24 23:42 | NUR ---
PATIENT DOUGHNUT BATTER MIXER LIGHT, REQUESTS SOCKS TO BE PLACED ON AND REQUESTS TO BE PLACED ON BIPAP, RT WADNER CALLED FOR PLACEMENT OF BIPAP. O2 SATS 87%-88%.
--- NOTE | 2020-10-24 23:47 | NUR ---
ON BIPAP FIO2 100%. PLACED BY RT MARIO. O2 SATS 94%.
[2020-10-25] VITALS (14 sets, daily range): BP systolic 108–158; BP diastolic 81–113
--- NOTE | 2020-10-25 01:20 | NUR ---
PATIENT RESTS WITH EYES CLOSED, ON BIPAP, SPO2 97%. NO ACUTE DISTRESS SHOWN, RESP RATE 26-34.
--- NOTE | 2020-10-25 04:05 | NUR ---
PATIENT CONTINUES TO REST WITH BIPAP IN PLACE. NO ACUTE DISTRESS SHOWN. CALL LIGHT WITHIN REACH.
--- NOTE | 2020-10-25 04:52 | NUR ---
WELFARE INVESTIGATOR IN ROOM FOR AM LABS
[2020-10-25 05:03] LABS: HEMATOCRIT 50.6 % (39.0-50.0); HEMOGLOBIN 16.1 g/dl (14.0-18.0); IMMATURE GRANULOCYTES 2.1 % (0.0-5.0); MEAN CELL VOLUME 87.5 fL CALC (80.0-100.0); MEAN CORPUSCULAR HGB 27.9 pG CALC (26.0-32.0); MEAN CORPUSCULAR HGB CONC 31.8 g/dL CAL (32.0-36.0); NEUT# 8.09 thou/uL (1.82-7.42); RED BLOOD COUNT 5.78 mill/uL (4.70-6.10); RED CELL DISTRI WIDTH 16.5 % (11.5-15.5)
[2020-10-25 05:24] LABS: ALBUMIN 3.7 g/dL (3.2-5.0); ALKALINE PHOSPHATASE 108 u/l (38-126); ANION GAP 6 (6-22 (CALC)); BILIRUBIN, TOTAL 0.8 mg/dL (0.0-1.4); BUN 35 mg/dL (8-23); BUN/CREATININE RATIO 28 (12-20 (CALC)); C-REACTIVE PROTEIN < 0.5 mg/dL (0-0.9); CHLORIDE 98 mmol/l (95-108); CREATININE 1.3 mg/dL (0.7-1.3); GFR 56 ML/MIN (>=60 (CALC)); GFR FOR AFR.AMER. > 60 ML/MIN (>=60 (CALC)); POTASSIUM 4.2 mmol/l (3.5-5.1); SGOT/AST 75 u/l (19-48); SODIUM 139 mmol/l (137-146); TOTAL PROTEIN 6.7 g/dL (6.3-8.2)
[2020-10-25 05:28] LABS: CARBON DIOXIDE 39 mmol/l (22-30)
--- NOTE | 2020-10-25 06:01 | NUR ---
PATIENT REQUESTS TO HAVE BIPAP BACK ON AFTER COUGHING HE BECAME SOB AND DYSPNEIC, LABORED BREATHING, BIPAP PLACED BACK ON, SLOWLY RECOVERS TO 87%-89%. WAS REMINDED TO FOCUS ON BREATHING AND NOT TO EXERT HIMSLEF.
--- NOTE | 2020-10-25 07:54 | NUR ---
PT OOB INTO CHAIR, SWITCHED FROM BiPAP TO VAPOTHERM. PRODUCTIVE COUGH OF THICK PHLEGM WHICH DOES NOT COME UP EASILY. SATS SEEN IN THE LOW 80s, RECOVERING TO UPPER 80s NOW. BREATHS ARE SHALLOW AND TACHYPNEIC IN THE 40-50 RANGE.
--- NOTE | 2020-10-25 11:41 | NUR ---
DR GARCIA CONSULT PLACED FOR ISOLATION PRECUATIONS
--- NOTE | 2020-10-25 11:42 | NUR ---
PT SEEN BY DR CASTRO THIS MORNING, DISCUSSED PROGRESS BEING SLOW. PT OXYGEN ON VAPOTHERM HAS BEEN LOWERED FROM 100% TO 85%, SATS REMAIN UPPER 80s TO LOW 90s. TO CONSULT DR GARCIA TO SEE IF ISOLATION IS STILL NEEDED.
--- NOTE | 2020-10-25 11:49 | NUR ---
PT SITTING IN CHAIR ON VAPOTHERM 40L 85% AT THIS TIME. pT TOLERATING WELL. RN SHANNAN CHAND WILL CONTINUE TO MONITOR
--- NOTE | 2020-10-25 13:39 | NUR ---
PT REMAINS ON VAPOTHERM 75% FIO2 SO2 91% RN SHANNAN CHAND
--- NOTE | 2020-10-25 13:52 | NUR ---
PT ABLE TO VISIT WITH HIS FOR HALF HOUR TODAY AFTER DR GARCIA CLEARED PT FROM ISOLATION. PT NOW UP TO BSC. VAPOTHERM TURNED UP WHILE ON BSC, BUT PT HAS TOLERATED FiO2 AT 75% PRIOR WITH SATS AROUND 90%.
--- NOTE | 2020-10-25 16:00 | NUR ---
PT PLACED ON 15L HFNC TIRAL AFTER ABG. PT TOLERATING WELL AT THIS TIME SO2 89-91%. RN SHANNAN IN ROOM AT BEDSIDE. VAPOTHERM ON STANDBY AT BEDSIDE. DR. CASTRO AWARE OF FIO2 TITRATION. BIPAP SETTINGS CHANGED TO CPAP OF 8 FIO2 75% TRIAL FOR NIGHT TIME OXYGENATION.
--- NOTE | 2020-10-25 16:49 | NUR ---
PT RETURNED TO VAPO 30L 70% FOR COMFORT.
--- NOTE | 2020-10-25 17:14 | NUR ---
PT HAS BEEN WEANED FROM VAPOTHERM TO HIGH FLOW NASAL CANNULA AND CONTINUES TO SAT AROUND 90%. PT TO HAVE CPAP TONIGHT INSTEAD OF BiPAP TO STOP BURSTS OF AIR THAT KEEP PT AWAKE.
--- NOTE | 2020-10-25 19:01 | NUR ---
PATIENT SALESPERSON STEREO EQUIPMENT LIGHT, REPORTS HE NEEDS HIS VAPOTHERM SETTINGS TURNED UP DUE TO HE "CAN'T CATCH HIS BREATHE." VAPOTHERM SET TO 40 LITERS AND 95%, O2 SAT 88%. SITS IN RECLINER.
--- NOTE | 2020-10-25 20:08 | NUR ---
PATIENT ASSISTED STANDBY TO BED. O2 SATS DROP LOW 81%, ALMAZAN SHAVE A COUGH, DOES NOT PRODUCE ANY PLHEGM AT THIS TIME. CONTINUES TO BE ON VAPOTHERM 40 LITERS/MIN, 100% FIO2. CLEAN SOCKS PLACED PER PT REQUEST, NURSE ASSESSMENT PERFORMED. SR/ST ON TELEMETRY. BP 150'S SYSTOLIC. LAC IV JNTACT, FLUSHES PROPERLY, SALINE LOCKED. CUP OF ICED WATER AT BEDSIDE, PHONE PLACED TO CHARGE. POC DISCUSSED. LAYS IN PUGA'S. CALL LIGHT WITHIN REACH.
--- NOTE | 2020-10-25 22:18 | NUR ---
PATIENT ABLE TO TOLERATE LOVENOX INJECTION. REPORTS HE IS TRYING TO COUGH UP PHLEGM, USES FLUTTER VALVE.
--- NOTE | 2020-10-25 23:32 | NUR ---
PATIENT BIOMASS POWER PLANT SUPERINTENDENT LIGHT, REPORTS HE IS READY TO GET ON BIPAP, RT WADNER CALLED AND NOTIFIED.
--- NOTE | 2020-10-25 23:45 | NUR ---
PATIENT REQUESTS ANOTHER BLANKET, REQUESTS FOR HIS SOCK TO BE PULLED OFF OF HIS TOES SINCE CAN BE TIGHT.
--- NOTE | 2020-10-25 23:50 | NUR ---
RT MARIO IN ROOM
[2020-10-26] VITALS (21 sets, daily range): BP systolic 114–170; BP diastolic 71–106
--- NOTE | 2020-10-26 00:08 | NUR ---
PT PLACED ON BIPAP MODE WITH THE LAST DETTING WAS ON DURING DAY SHIFT.
--- NOTE | 2020-10-26 00:45 | NUR ---
PATIENT REQUESTS MEDICATION TO HELP SLEEP, ATIVAN PROVIDED. LAYS ON HIS RIGHT SIDE, O2 SATS 95%. NO OTHER COMPLAINTS OR NEEDS AT THIS TIME. CALL LIGHT WITHIN REACH.
--- NOTE | 2020-10-26 04:11 | NUR ---
PATIENT RESTS WITH EYES CLOSED. ON BIPAP, O2 SAT 97%, AFEBRILE. RESP RATE 26-29.
[2020-10-26 05:24] LABS: HEMATOCRIT 49.9 % (39.0-50.0); HEMOGLOBIN 15.6 g/dl (14.0-18.0); MEAN CELL VOLUME 88.5 fL CALC (80.0-100.0); MEAN CORPUSCULAR HGB 27.7 pG CALC (26.0-32.0); MEAN CORPUSCULAR HGB CONC 31.3 g/dL CAL (32.0-36.0); RED BLOOD COUNT 5.64 mill/uL (4.70-6.10); RED CELL DISTRI WIDTH 16.2 % (11.5-15.5)
[2020-10-26 05:49] LABS: ALBUMIN 3.6 g/dL (3.2-5.0); ALKALINE PHOSPHATASE 107 u/l (38-126); ANION GAP 8 (6-22 (CALC)); BILIRUBIN, TOTAL 0.8 mg/dL (0.0-1.4); BUN 25 mg/dL (8-23); BUN/CREATININE RATIO 26 (12-20 (CALC)); CARBON DIOXIDE 37 mmol/l (22-30); CHLORIDE 98 mmol/l (95-108); GFR > 60 ML/MIN (>=60 (CALC)); GFR FOR AFR.AMER. > 60 ML/MIN (>=60 (CALC)); POTASSIUM 4.3 mmol/l (3.5-5.1); SGOT/AST 73 u/l (19-48); SODIUM 138 mmol/l (137-146); TOTAL PROTEIN 6.6 g/dL (6.3-8.2)
--- NOTE | 2020-10-26 07:23 | NUR ---
BIPAP STANDBY. PLACED ON VAPOTHERM 40L @ 95%.
--- NOTE | 2020-10-26 07:57 | NUR ---
PT OOB IN CHAIR AT THIS TIME, BiPAP REPLACED AND VAPOTHERM APPLIED. PT STATES THAT HE SLEPT WELL LAST NIGHT.
--- NOTE | 2020-10-26 11:52 | NUR ---
PT WEANED DOWN FROM VAPOTHERM FROM 40/100 TO 35/85 AT THIS TIME. SATS SEEN LOW 90s. MOISTURE SEEN BETWEEN RIGHT 2ND AND 3RD, 2X2 PLACED. THIS 2X2 WAS CHANGED OUT, BLOOD SEEN IF BLISTER POPPED. HONEY GEL USED FOR SKIN HEALING PROMOTION.
--- NOTE | 2020-10-26 15:29 | NUR ---
PT WEANED DOWN VAPOTHERM TO 30/80, TOLERATING WELL HE IS RESTING IN THE BED WITH EYES CLOSED. VISITED EARLIER.
--- NOTE | 2020-10-26 19:30 | NUR ---
sitting in bedside chair. vapotherm conts. denies resp distress. quality assurance monitor final shows sinus rhythm pacs pvcs hr 96. po fluids taken well. higgins cath in place. urine clear yellow. incentive spirometry encouraged. fall precautions cont.
--- NOTE | 2020-10-26 21:20 | NUR ---
to bed x1 assist. rt notified of need for bipap.
--- NOTE | 2020-10-26 21:34 | NUR ---
PT PLACED BACK ON BIPAP FOR THE NIGHT. 14/6 85%. TOLERATING WELL HR 101, RR 33, SPO2 96%.
[2020-10-27] VITALS (16 sets, daily range): BP systolic 109–171; BP diastolic 72–107
--- NOTE | 2020-10-27 00:01 | NUR ---
eyes closed. no resp diff. bipap conts.
--- NOTE | 2020-10-27 02:00 | NUR ---
resting quietly. resps even & unlabored. no apparent distress. household personal assistant shows sinus rhythm pacs pvcs hr 84.
--- NOTE | 2020-10-27 04:00 | NUR ---
eyes closed. no distress. higgins draining well.
[2020-10-27 05:39] LABS: HEMATOCRIT 48.4 % (39.0-50.0); HEMOGLOBIN 15.2 g/dl (14.0-18.0); IMMATURE GRANULOCYTES 1.6 % (0.0-5.0); MEAN CELL VOLUME 88.2 fL CALC (80.0-100.0); MEAN CORPUSCULAR HGB 27.7 pG CALC (26.0-32.0); MEAN CORPUSCULAR HGB CONC 31.4 g/dL CAL (32.0-36.0); NEUT# 6.97 thou/uL (1.82-7.42); RED BLOOD COUNT 5.49 mill/uL (4.70-6.10); RED CELL DISTRI WIDTH 16.1 % (11.5-15.5)
[2020-10-27 05:55] LABS: ALBUMIN 3.4 g/dL (3.2-5.0); ALKALINE PHOSPHATASE 102 u/l (38-126); ANION GAP 9 (6-22 (CALC)); BILIRUBIN, TOTAL 0.9 mg/dL (0.0-1.4); BUN 21 mg/dL (8-23); BUN/CREATININE RATIO 25 (12-20 (CALC)); C-REACTIVE PROTEIN 0.9 mg/dL (0-0.9); CARBON DIOXIDE 36 mmol/l (22-30); CHLORIDE 97 mmol/l (95-108); CREATININE 0.8 mg/dL (0.7-1.3); GFR > 60 ML/MIN (>=60 (CALC)); GFR FOR AFR.AMER. > 60 ML/MIN (>=60 (CALC)); POTASSIUM 4.4 mmol/l (3.5-5.1); SGOT/AST 65 u/l (19-48); SODIUM 137 mmol/l (137-146); TOTAL PROTEIN 6.3 g/dL (6.3-8.2)
--- NOTE | 2020-10-27 06:00 | NUR ---
no acute resp diff this shift. bipap conts.
--- NOTE | 2020-10-27 06:25 | NUR ---
PT RECIEVED ON ALL DOCUMENTED PARAMETERS. NAD. VSS. RESTING COMFORTABLY IN BED AT THIS TIME.
--- NOTE | 2020-10-27 06:52 | NUR ---
PT REPORT RECEIVED FROM CHERRY PICKER OPERATOR, PT IS SLEEPING AT THIS TIME
--- NOTE | 2020-10-27 07:15 | NUR ---
placed pt on vapotherm as per request. nad. vss. pt spo2 dropped, but recovering well. steersman to monitor.
--- NOTE | 2020-10-27 09:06 | NUR ---
PT SITTING UP IN CHAIR,, ON VAPOTHERM AT THIS TIME, ALERT/ORIENTED X3, WATCHING TV. VITAL SIGNS REMAIN STABLE AT THIS TIME.
--- NOTE | 2020-10-27 09:16 | NUR ---
PORTABLE CHEST XRAY HERE FOR TEST ORDERED.
--- NOTE | 2020-10-27 12:15 | NUR ---
WEANED LPM ON VAPOTHERM PER PT TOLERANCE. PT ARHTUR WELL. NAD. VSS. RESTING COMFORTABLY IN RECLINER AT BEDSIDE, EATING LUNCH, TALKING IN FULL AND COMPLETE SENTENCES. SMALL ENGINE TECHNICIAN TO MONITOR.
--- NOTE | 2020-10-27 12:19 | NUR ---
WEANED LPM ON VAPOTHERM PER PT ARTHUR. PT ARTHUR WELL AT THIS TIME. NAD. VSS. PT IN CHAIR BY BEDSIDE RESTING AND EATING LUNCH. SPEAKING IN FULL SENTENCES, VERBALIZES UNDERSTANDING OF WEANING PROCEDURE. STERILE PROCESS TECH TO MONITOR.
--- NOTE | 2020-10-27 13:43 | NUR ---
WEANED PER PT SPO2/TOLERANCE. PT ARTHUR DE LA PAZ. IN ROOM WITH SPOUSE. NAD. VSS. PHOTOENGRAVING APPRENTICE TO MONITOR.
--- NOTE | 2020-10-27 14:07 | NUR ---
PTS AT BEDSIDE, PT REMAINS SITTING UP IN RECLINER. SATS 94%.
--- NOTE | 2020-10-27 19:30 | NUR ---
sitting in bedside chair. no resp diff. o2 cont per vapotherm. cardiac catheterization technologist shows sinus rhythm pacs pvcs hr 96. #20 lac saline lock. po fluids taken well. higgins cath in place. urine clear yellow. fall precautions cont.
--- NOTE | 2020-10-27 21:30 | NUR ---
to bsc then to bed. ativan 1mg ivp given. rt notified of need for bipap.
[2020-10-28] VITALS (21 sets, daily range): BP systolic 102–153; BP diastolic 58–96
--- NOTE | 2020-10-28 00:01 | NUR ---
eyes closed. no distress. monitor car operator shows sinus rhythm pacs pvcs hr 82.
--- NOTE | 2020-10-28 02:00 | NUR ---
resting quietly. resps even & unlabored. bipap conts.
--- NOTE | 2020-10-28 03:30 | NUR ---
medicated with tylenol for leg pain.
[2020-10-28 05:23] LABS: HEMATOCRIT 48.3 % (39.0-50.0); HEMOGLOBIN 15.2 g/dl (14.0-18.0); MEAN CORPUSCULAR HGB CONC 31.5 g/dL CAL (32.0-36.0); RED BLOOD COUNT 5.43 mill/uL (4.70-6.10); RED CELL DISTRI WIDTH 16.2 % (11.5-15.5)
[2020-10-28 05:51] LABS: ALBUMIN 3.6 g/dL (3.2-5.0); ALKALINE PHOSPHATASE 102 u/l (38-126); ANION GAP 5 (6-22 (CALC)); BILIRUBIN, TOTAL 0.8 mg/dL (0.0-1.4); BUN 18 mg/dL (8-23); BUN/CREATININE RATIO 23 (12-20 (CALC)); CARBON DIOXIDE 38 mmol/l (22-30); CHLORIDE 98 mmol/l (95-108); CREATININE 0.8 mg/dL (0.7-1.3); GFR > 60 ML/MIN (>=60 (CALC)); GFR FOR AFR.AMER. > 60 ML/MIN (>=60 (CALC)); POTASSIUM 4.1 mmol/l (3.5-5.1); SGOT/AST 66 u/l (19-48); SODIUM 138 mmol/l (137-146); TOTAL PROTEIN 6.4 g/dL (6.3-8.2)
--- NOTE | 2020-10-28 06:06 | NUR ---
bipap conts. no resp diff.
--- NOTE | 2020-10-28 07:03 | NUR ---
PT RESTING COMFORTABLY ON BIPAP, IN BED. LAYING FLAT./ NAD. VSS. BINDER FIXER TO MONITOR, PLACE ON VAPOTHERM UPON AWAKE HOURS, AND WEAN TO HFNC TODAY.
--- NOTE | 2020-10-28 08:21 | NUR ---
PT PLACED ON VAPOTHERM 33LPM/100% FOR BREAKFAST, WILL WEAN TO 25LPM/100% S/P BREAKFAST, AND PLAN TO WEAN TO HFNC DURING THE DAY. AUTOMATIC PRINT DEVELOPER TO MONITOR. RN AWARE.
--- NOTE | 2020-10-28 09:30 | NUR ---
PT SEEN AWAKE, ALERT, ORIENTED X 3. PT OOB IN CHAIR FIRST THING THIS MORNING, WAS SWITCHED TO VAPOTHERM FROM BIPAP, ABLE TO EAT BREAKFAST. PT SEEN BY DR CASTRO AND DORCAS HOANG, WILL ATTEMPT TO WEAN TO HIGH FLOW CANNULA OVER THE DAY. PT FEELS WELL, SPEAKS IN COMPLETE SENTENCES, ABLE TO LET NEEDS BE KNOWN.
--- NOTE | 2020-10-28 10:04 | NUR ---
WEANED LPM ON VAPOTHERM TO 30LPM. PT ARTHUR WELL. RN IN ROOM. ADMINISTERED 1ST DOSE 0.5 PULMICORT VIA NEBULIZER, PT ARTHUR WELL. SCRIBING MACHINE OPERATOR TO MONITOR, WEAN THROUGHOUT THE DAY PT TOLERATES.
--- NOTE | 2020-10-28 10:12 | NUR ---
WEANED LPM ON VAPOTHERM TO 25LPM/100%. PT ARTHUR WELL. SPO2 @ 92% ON CURRENT SETTINGS. PT VERBALIZES UNDERSTANDING OF WEANING PROCEDURE FOR THE DAY. JUNIOR BRAND MANAGER TO MONITOR.
--- NOTE | 2020-10-28 11:09 | NUR ---
WEANED LPM ON VAPOTHERM FROM 25LPM/100% TO 20LPM/100%. PT ARTHUR WELL AT THIS TIME. NAD. VSS. SPORTS WRITER TO MONITOR. RN AWARE. WILL CONTINUE TO WEAN TOLERATED.
--- NOTE | 2020-10-28 12:48 | NUR ---
WEANED VAPOTHERM TO 15LPM/100%. PT ARTHUR WELL. WILL WEAN TO HFNC NEXT IF PT ARTHUR. RN AWARE. LATHE MACHINE OPERATOR TO MONITOR. NAD. VSS. PT RESTING COMFORTABLY IN BEDSIDE RECLINER.
--- NOTE | 2020-10-28 13:22 | NUR ---
PT BEING TAPERED DOWN FROM 40/100 VAPOTHERM SETTINGS IN HOPES OF PLACING HIM ON HIGH FLOW CANNULA. PT WITH SATS AROUND 90% NOW, 15/100. AT BEDSIDE FOR VISIT.
--- NOTE | 2020-10-28 15:01 | NUR ---
PT WEANED FROM VAPOTHERM ONTO 15LPM HFNC. ARTHUR WELL AT THIS TIME. INSTRUCTED PT THAT STRENUOUS ACTIVITIES SUCH RESTROOM , ETC SHOULD HAVE BIPAP ON FOR A BIT AND THEN BACK TO HFNC. RN IN ROOM WELL. CLINIC PHYSICIAN TO MONITOR.
--- NOTE | 2020-10-28 17:46 | NUR ---
PT CONTINUES OOB IN CHAIR WITH SATS IN THE 90s, HIGH FLOW CANNULA AT 15 LPM.
--- NOTE | 2020-10-28 19:45 | NUR ---
sitting in bedside chair. denies resp distress. o2 cont per high flow caannula. traffic monitor specialist shows sinus rhythm pacs pvcs hr 96. #20 lac saline lock. po fluids taken well. higgins cath in place. urine clear yellow. fall precautions cont.
--- NOTE | 2020-10-28 21:00 | NUR ---
snack given per request. assisted to bsc then to bed. lea well. rt notified of need for bipap. ativan 1mg ivp given.
[2020-10-29] VITALS (15 sets, daily range): BP systolic 102–132; BP diastolic 50–86
--- NOTE | 2020-10-29 00:30 | NUR ---
up to bsc then back to bed. lea well. desats to 85%. no c/o resp distress. tylenol 650mg given per request for skinner.
--- NOTE | 2020-10-29 02:00 | NUR ---
resting quietly. resps even & unlabored. cardiac nurse shows sinus rhythm pacs pvcs hr 92.
--- NOTE | 2020-10-29 04:50 | NUR ---
lab here. blood drawn. xray here. pcxr obtained.
[2020-10-29 05:23] LABS: HEMATOCRIT 48.6 % (39.0-50.0); HEMOGLOBIN 15.6 g/dl (14.0-18.0); MEAN CELL VOLUME 88.5 fL CALC (80.0-100.0); MEAN CORPUSCULAR HGB 28.4 pG CALC (26.0-32.0); MEAN CORPUSCULAR HGB CONC 32.1 g/dL CAL (32.0-36.0); NEUT# 7.8 thou/uL (1.82-7.42); RED BLOOD COUNT 5.49 mill/uL (4.70-6.10); RED CELL DISTRI WIDTH 16.2 % (11.5-15.5)
[2020-10-29 05:48] LABS: ALBUMIN 3.8 g/dL (3.2-5.0); ALKALINE PHOSPHATASE 104 u/l (38-126); ANION GAP 9 (6-22 (CALC)); BILIRUBIN, TOTAL 0.9 mg/dL (0.0-1.4); BUN 25 mg/dL (8-23); BUN/CREATININE RATIO 31 (12-20 (CALC)); CARBON DIOXIDE 37 mmol/l (22-30); CHLORIDE 95 mmol/l (95-108); CREATININE 0.8 mg/dL (0.7-1.3); GFR > 60 ML/MIN (>=60 (CALC)); GFR FOR AFR.AMER. > 60 ML/MIN (>=60 (CALC)); POTASSIUM 3.8 mmol/l (3.5-5.1); SGOT/AST 60 u/l (19-48); SODIUM 137 mmol/l (137-146); TOTAL PROTEIN 6.6 g/dL (6.3-8.2)
--- NOTE | 2020-10-29 06:57 | NUR ---
PT REPORT RECEIVED FROM PEDIATRIC RADIOLOGIST. PT SLEEPING, VITAL SIGNS STABLE
--- NOTE | 2020-10-29 07:42 | NUR ---
ASSISTED PT FROM BED TO CHAIR, S/P REMOVING BIPAP AND PLACING ON 15LPM HFNC. PT SPO2 DECREASED AND WOB INCREASED UPON EXERTION, WITH SLOW BUT SUCCESSFUL REBOUND OF SPO2. PT IN CHAIR AT BEDSIDE AT THIS TIME. EXCEL VBA DEVELOPER TO MONITOR.
--- NOTE | 2020-10-29 07:54 | NUR ---
PT SWITCHED TO HIGH FLOW 15 LITRES PER RESP TECH, SITTING UP IN RECLINER, EATING BREAKFAST. SATS ARE 92-94%, NO COMPLAINTS AT THIS TIME
--- NOTE | 2020-10-29 09:30 | NUR ---
DOCTOR IN TO SEE PT. PT STATES FEELING BETTER, DOCTOR SPOKE TO HIM ABOUT REMOVING HALL, AND PT VOICES UNDERSTANDING.
--- NOTE | 2020-10-29 11:12 | NUR ---
HALL HAS BEEN REMOVED WITH NO COMPLAINTS FROM PT. NO BLEEDING OR SWELLING NOTED, PT TOLERATED PROCEDURE WELL. URINAL GIVEN. SATS REMAIN IN THE LOW 90'S ON HIGH FLOW 15. PT REMAINS SITTING UP IN RECLINER.
--- NOTE | 2020-10-29 13:00 | NUR ---
PT WANTED BACK IN BED , STATES IS GOING TO REST UP BEFORE HIS COMES. RESP HERE FOR NEB TREATMENT.
--- NOTE | 2020-10-29 13:02 | NUR ---
HELPED PT BACK TO BED FROM RECLINEJazmin Arnold RN. ASTRONOMY DEPARTMENT CHAIR THEN ADMINISTERED AEROSOLIZED BRONCHODILTOR THERAPY VIA SVN. PT SPO2 =91 AT THIS TIME AND SLOWLY RECOVERING. PT SEEMS TO HAVE INCREASED LEVEL OF ANXIETY DESPITE VSS. NO ACUTE DISTRESS NOTED AT THIS TIME. ASTRONOMY DEPARTMENT CHAIR TO MONITOR.
--- NOTE | 2020-10-29 18:01 | NUR ---
PT REMAINS SITTING UP IN RECLINER, HIGH FLOW 02 AT 15 LITRES. SATS 90-93%, NO COMPLAINTS EXCEPT FOR FEELING WEAKER TODAY. ADVISED THAT HE HAS NOT BEEN ON VAPOTHERM AND HAS REMAINED ON HIGH FLOW AND THAT COULD BE THE REASON HE WAS FEELING INCREASED TIREDNESS BUT WOULD MONITER HIM THRU THE NIGHT FOR ANY OTHER PROBLEMS.
--- NOTE | 2020-10-29 19:58 | NUR ---
PATIENT IS AWAKE, ORIENTED X4. SITS IN RECLINER. PATIENT HAS A DIFFICULT TIME SPEAKING IN NORMAL VOICE, IS ABLE TO WHISPER. NURSE ASSESSMENT PERFORMED. POC DISCUSSED, IS ON HIGH FLOW 15 L/MIN HUMIDIFIED, O2 SATS 92%-94%. LAC 20 G IV INTACT, FLUSHES PROPERLY, SALINE LOCKED. BP 130'S SYSTOLIC, ST, LOW 100'S ON TELEMETRY. AFEBRILE. DENIES PAIN. USES URINAL AT BEDSIDE, VOIDED YELLOW/CLEAR URINE. ICED WATER PROVIDED, TISSUES PROVIDED. CALL LIGHT WIHIN REACH.
--- NOTE | 2020-10-29 20:36 | NUR ---
RT IN ROOM TO PROVIDE BEDTIME BREATHING TX.
--- NOTE | 2020-10-29 20:54 | NUR ---
PATIENT ASSISTED TO BSC STANDBY, DESATS TO 84%, RESP RATE INCREASES. CALL LIGHT WITHIN REACH.
--- NOTE | 2020-10-29 21:02 | NUR ---
PATIENT ON BSC, O2 SATS 90%.
--- NOTE | 2020-10-29 21:22 | NUR ---
PATIENT SITS BACK IN RECLINER, HAD A SMALL FORMED BM, BRIGHT RED BLOOD PRESENT. O2 SATS 90%, REPORTS HE WILL USE CALL LIGHT WHEN HE IS READY TO BE ASSISTED TO BED AND AFTER USING URINAL.
--- NOTE | 2020-10-29 21:59 | NUR ---
PATIENT ASSISTED STANDBY TO BED, LAYS IN PUGA'S POSITION, O2 SAT DROPPED TO 76%, VERBAL CUED TO TAKE SLOW, DEEP BREATHS, CONCENTRATE ON BREATHING. CLEAN SOCKS PLACED PER REQUEST. TOLERATES LOVENOX INJECTION, ATIVAN PROVIDED. CELLPHONE PLACED TO CHARGE, BED SIDE TABLE WITHIN REACH WITH ICED WATER. URINAL AT BEDSIDE. CALL LIGHT WITHIN REACH.
[2020-10-30] VITALS (9 sets, daily range): BP systolic 103–154; BP diastolic 68–89
--- NOTE | 2020-10-30 00:35 | NUR ---
RT [place] IN ROOM, O2 SATS 85%-88%, WILL CONTINUE TO MONITOR AND NOTIFY RT IF O2 SATS DROP. PATIENT AFEBRILE, AWAKENS EASILY WHEN SPOKEN TO, DENIES ANY NEEDS AT THIS TIME. CALL LIGHT WITHIN REACH.
--- NOTE | 2020-10-30 00:44 | NUR ---
O2 SAT 91%-92%, PATIENT RESTS WITH EYES CLOSED.
--- NOTE | 2020-10-30 02:13 | NUR ---
O2 SATS DROPPPED TO 82%, PATIENT HAD MOVED FROM HIS SIDE TO LAY ON HIS BACK, WAS INSTRUCTED TO PULL HIMSELF UP TO THE HEAD OF THE BED AND HOB WAS ELEVATED, WAS INSTRUCTED PURSED LIP BREATHING. WILL CONTINUE TO MONITOR.
--- NOTE | 2020-10-30 04:25 | NUR ---
PATIENT AZURE DEVELOPER LIGHT, ASSISTED WITH USING URINAL. BECAME SOB, LABORED BREATHING, O2 SATS DROPPED TO 76%, WAS INSTRUCTED TO TAKE SLOW, DEEP BREATHS. RT WAS CALLED TO ROOM DUE TO PATIENT O2 SATS NOT IMPROVING, RT PLACED PATIENT ON NONREBREATHER AT 15 L/MIN, PATIENT LAYS IN PUGA'S. REPORTS FEELING BETTER WITH NRB MASK, O2 SAT 90%. WILL CONTINUE TO MONITOR.
--- NOTE | 2020-10-30 04:25 | NUR ---
CALLED TO BEDSIDE. PATIENT SATS 78% WITH LABORED BREATHING ON 15L HIGH FLOW CANNULA. PLACED ON 100% NON-REBREATHER WITH SATS INCREASING QUICKLY TO 90%.
--- NOTE | 2020-10-30 06:17 | NUR ---
PATIENT HAS INTERMITTENT COUGH. REMAINS ON NRB MASK AT 15 L/MIN, O2 SATS 95%. RESP RATE 30'S. CLL LIGHT WITHIN REACH.
--- NOTE | 2020-10-30 06:45 | NUR ---
RECIEVED REPORT FROM KRISSY VILLALBA. ASSUMED PT CARE.
--- NOTE | 2020-10-30 07:30 | NUR ---
PT A&OX4, ABLE TO MAKE NEEDS KNOWN. ST ON TELEMETRY, HR 118. PT DENIES CP OR DISTRESS. PT SOB WITH MINIMAL EXCERTION, LS CLEAR THROUGHOUT, RESPIRATION SHALLOW, SA02@87% ON 15LPM/HF/NRB. PT ABDOMEN SOFT, NON-TENDER, BSX4 ACTIVE. LBM 3-20-21. PT NOTED WITH LLE HOT, RED, PP+, PT ASSISTED TO SIDE OF BED TO USE URINAL, 200OP URINE, DARK YELLOW. PT DESAT WITH EXCERTION. PT REMAINS ON SIDE OF BED. CALL LIGHT IN REACH.
--- NOTE | 2020-10-30 08:00 | NUR ---
PT ASSISTED TO THE RECLINER,DIETARY TRAY SET UP. PT PLACED ON 15LPM/HF/NC. DR. BLANKENSHIP NOTIFIED OF LLE.
--- NOTE | 2020-10-30 09:00 | NUR ---
PT ASSISTED TO BSC, LARGE BROWN SOFT FORMED BM. PT ASSISTED BACK TO RECLINER. BLE UP, LLE ELEVATED WITH PILLOW AT PT REQUEST. CALL LIGHT IN REACH.
--- NOTE | 2020-10-30 10:00 | NUR ---
PT DAUGHTER CALLED WITH CODE, UPDATE GIVEN. PT REMAINS IN RECLINER, NO DISTRESS NOTED AT THIS TIME.
--- NOTE | 2020-10-30 10:31 | NUR ---
DR. BLANKENSHIP AT BEDSIDE FOR ASSESSMENT AND TO DISCUSS PLAN OF CARE, NEW ORDERS RECIEVED.
--- NOTE | 2020-10-30 12:30 | NUR ---
REPORT RECEIVED FROM AXEL REY FOR CONTINUATION OF CARE. PT SITTING UP IN RECLINER, PT IS ON HIGH FLOW ,
--- NOTE | 2020-10-30 14:18 | NUR ---
AT BEDSIDE, HELPING PT DO A PARTIAL BATH
--- NOTE | 2020-10-30 15:34 | NUR ---
PT REMAINS SITTING UP IN RECLINER AND WATCHING TV, HIGH FLOW 15 LITRE REMAINS ON. NO COMPLAINTS AT THIS TIME
--- NOTE | 2020-10-30 16:23 | NUR ---
WEANED LPM ON HFNC FROM 15 TO 12. FINANCIAL INVESTIGATOR TO MONITOR. RN AWARE. PT RESTING COMFORTABLY IN RECLINER BY BEDSIDE. NO ACUTE DISTRESS NOTED.
--- NOTE | 2020-10-30 16:30 | NUR ---
PT REQUESTING NEB TREATMENT. RESP TECH HERE FOR BREATHING TREATMENT.
--- NOTE | 2020-10-30 18:10 | NUR ---
PT RESTING QUIETLY IN RECLINER, HIGH FLOW AT 12 LITRES. 97%. NO COMPLAINTS AT THIS TIME.
--- NOTE | 2020-10-30 18:41 | NUR ---
PATIENT GAMING ASSOCIATE LIGHT, REQUESTS TO HAVE HIS O2 TITRATED, REPORTS "CAN'T CATCH MY BREATHE." O2 TITRATED TO 14 L/MIN ON HIGH FLOW H. IS NOT ON THE BSC. CALL [facility] WITHIN REACH. WAS INSTRUCTED TO TAKE DEEP BREATHES, CONCENTRATE ON BREATHNG AND WHEN HE FELT COMFORTABL HE COULD KEEP POOPING.
--- NOTE | 2020-10-30 19:03 | NUR ---
PATIENT ABLE TO SIT BACK IN RECLINER, HAD A XL BROWN/SOFT BM, NO BLOOD NOTED. DID TITRATE O2 TO 15 L/MIN, PATIENT DESATED TO 69% WITH MOVING TO THE RECLINER AFTER WIPING HIMSELF. PATIENT SLOWLY ABLE TO RECOVER TO 88%-91%. RESPIRATION RATE DECREASED FROM 40'S TO 30'S. SINUS TACHYCARDIA 118-122 BPM WITH EXERTION. NURSE ASSESSMENT PERFORMED. BILATERAL TRIMMING MACHINE SET UP OPERATOR MODERATELY STRONG. ALERT AND ORIENTED X4. DISCOLORATION OF BILAT EXTREMETIES, REDNESS NOTED TO LEFT LOWER EXTREMETY ALONG WITH 1+ EDEMA. LAC 20 G IV INTACT, FLUSHES PROPERLY, SALINE LOCKED. URINAL AT BEDSIDE. NO COMPLAINTS OF PAIN, REQUESTS ICELANDIC ICE WITH SPOON, PROVIDED. CALL LIGHT WITHIN REACH. AFEBRILE.
--- NOTE | 2020-10-30 19:29 | NUR ---
O2 SATS 97%, RESTING, O2 WEANED TO 13 L/MIN. WILL CONTINUE TO MONITOR.
--- NOTE | 2020-10-30 20:09 | NUR ---
ICED WATER PROVIDED PER REQUEST, RT IN ROOM TO PROVIDED BREATHING TX.
--- NOTE | 2020-10-30 20:29 | NUR ---
TYLENOL GIVEN PER REQUEST FOR COMPLAINTS OF LLE PAIN, RATES 4/10, ABLE TO TOLERATE LOVENOX INJECTION, REPORTS HE IS GOING TO USE URINAL BEFORE HE GOES TO BED.
--- NOTE | 2020-10-30 21:00 | NUR ---
PATIENT ABLE TO TRANSFER TO BED, DESATED TO 80'S. BLISTER ON MIDDLE OF 2ND AND 3RD TOE CLEANED WITH SALINE, PATTED DRY WITH 4X4 GAIZE AND HONEY OINTMENT APPLIED, SOME TOES NOTED TO HAVE DRY SKIN IN BETWEEN, 4X4 GAUZE APPLIED BETWEEN EACH TOE TO PROTECT FROM MOISTURE. CLEAN SOVKS APPLIED, I DID SUGGEST TO PATIENT TO LEAVE LEFT FOOT WITH NO SOCK SINCE IT IS RED/ EDEMETOUS/ WARM, PATIENT REFUSED, LOOSE SOCK PLACED ON FOOT. LEFT FOOT ELEVATED WITH PILLOW. O2 WEANED TO 12 L/MIN, O2 SATS 92%. LAYS IN PUGA'S POSITION. CALL LIGHT WITHION REACH.
[2020-10-31] VITALS (17 sets, daily range): BP systolic 101–156; BP diastolic 68–97
--- NOTE | 2020-10-31 00:05 | NUR ---
PATIENT PAYROLL ACCOUNTING CLERK LIGHT, SAT UP TO USE URINAL, DESATS, INCREASED WORK OF BREATHING, O2 TITRATED TO 15 L/MIN, RECOVERED TO 90%, THAN LAYED BACK IN BED, ANTIBIOTIC INFUSING, ATIVAN GIVEN PER REQUEST. LLE ELEVATED, LAYS IN PUGA'S. WILL CONTINUE TO MONITOR.
--- NOTE | 2020-10-31 00:37 | NUR ---
ANTIBIOTIC FINISHED, O2 WEANED TO 13 L/MIN, O2 SAT 93%. PATIENT IS A MOUTH BRAETHER. NNO ACUTE DISTRESS SHOWN. CALL LIGHT WITHIN REACH.
--- NOTE | 2020-10-31 01:09 | NUR ---
O2 WEANED TO 11 L/MIN HIGH FLOW H. O2 SAT 94%
--- NOTE | 2020-10-31 02:54 | NUR ---
PATIENT REQUESTS TYLENOL FOR LLE PAIN, ALSO DESATTED TO 83%, O2 TITRATED TO 13 L/MIN. WILL CONTINUE TO MONITOR.
[2020-10-31 04:41] LABS: HEMATOCRIT 46.3 % (39.0-50.0); HEMOGLOBIN 14.8 g/dl (14.0-18.0); IMMATURE GRANULOCYTES 0.5 % (0.0-5.0); MEAN CELL VOLUME 90.1 fL CALC (80.0-100.0); MEAN CORPUSCULAR HGB 28.8 pG CALC (26.0-32.0); NEUT# 10.79 thou/uL (1.82-7.42); RED BLOOD COUNT 5.14 mill/uL (4.70-6.10); RED CELL DISTRI WIDTH 16.8 % (11.5-15.5)
--- NOTE | 2020-10-31 04:42 | NUR ---
PATIENT PULP MAKING PLANT OPERATOR LIGHT, ASSISTED WITH URINAL. SOB WITH EXERTION, REQUESTED TO HAVE NRB MASK ON, PLACED. O2 SAT 92% WITH NRB MASK. LLE PLACED BACK ON PILLOW, NO INCREASED SWELLING NOTED. AFEBRILE. CALL LIGHT WITHIN REACH.
[2020-10-31 05:01] LABS: ALBUMIN 3.6 g/dL (3.2-5.0); ALKALINE PHOSPHATASE 104 u/l (38-126); ANION GAP 9 (6-22 (CALC)); BILIRUBIN, TOTAL 0.8 mg/dL (0.0-1.4); BUN 31 mg/dL (8-23); BUN/CREATININE RATIO 37 (12-20 (CALC)); C-REACTIVE PROTEIN 5.8 mg/dL (0-0.9); CARBON DIOXIDE 38 mmol/l (22-30); CHLORIDE 96 mmol/l (95-108); CREATININE 0.8 mg/dL (0.7-1.3); GFR > 60 ML/MIN (>=60 (CALC)); GFR FOR AFR.AMER. > 60 ML/MIN (>=60 (CALC)); SGOT/AST 46 u/l (19-48); SODIUM 139 mmol/l (137-146); TOTAL PROTEIN 6.5 g/dL (6.3-8.2)
--- NOTE | 2020-10-31 06:05 | NUR ---
ANTIBIOTIC INFSUING NOW. PATIENT PLACED BACK ON HIG FLOW NC H AT 13 L/MIN.
--- NOTE | 2020-10-31 07:09 | NUR ---
REPORT RECEIVED FROM KRISSY VILLALBA. PT RESTING IN BED SEMI FOWLERS; ALERT AND ORIENTED X 3; VOICE IS LOW AND HOARSE; PT STATES, "I LOST MY VOICE." C/O MILD PAIN TO LLE AND RIGHT HEEL; R HEEL NOTED TO BE DRY AND CRACKED WITH SCANT DRIED BLOOD; BLANCHABLE REDNESS; HEEL OFFLOADED WITH PILLOWS. RESPIRATIONS SHALLOW AND UNLABORED AT 26 PER MINUTE ON 13 L HIGH FLOW NC; SPO2 97%. VSS. PLAN OF CARE REVIEWED. PT ENCOURAGED TO VERBALIZE CONCERNS. STATES UNDERSTANDING. SAFETY MEASURES IN PLACE. CALL LIGHT WITHIN REACH.
--- NOTE | 2020-10-31 07:45 | NUR ---
UP TO CHAIR. RT AT BEDSIDE FOR BREATHING TREATMENT.
--- NOTE | 2020-10-31 07:49 | NUR ---
WEANED HFNC TO 10LPM AND ASSISTED RN WITH GETTING PT OUT OF BED AND INTO BEDSIDE RECLINER. PT ARTHUR WELL. RN AWARE. B OPERATOR TO MONITOR.
--- NOTE | 2020-10-31 08:35 | NUR ---
DR. PHILLIPS AT BEDSIDE.
--- NOTE | 2020-10-31 08:44 | NUR ---
PT ARTHUR AEROSOLIZED CORTICOSTEROID THERAPY WELL. NAD. VSS. RN IN ROOM. PT ON 10LPM HFNC,ARTHUR WELL. PRODUCT DEVELOPMENT INTERN TO MONITOR.
--- NOTE | 2020-10-31 08:53 | NUR ---
DECLINED DEMADEX AND DISCUSSED MEDICATIONS WITH MD. NEW ORDERS RECEIVED.
--- NOTE | 2020-10-31 09:10 | NUR ---
USING URINAL AND UP TO BSC FOR BOWEL MOVEMENT; SPO2 DECREASED INTO 60'S; OXYGEN TITRATED UP TO 15L DURING EXERTION AND SPO2 BACK UP TO 90% WHILE UP.
--- NOTE | 2020-10-31 10:05 | NUR ---
BACK UP TO CHAIR ON 15L HIGH FLOW NC; NON REBREATHER APPLIED WHILE ON COMMODE PER PT REQUEST DUE TO SOB; PT RECOVERING WELL SPO2 UP TO 96%. METOPROLOL GIVEN FOR ELEVATED HEART RATE ALONG WITH GOUT MEDICATION. PT C/O PAIN TO RIGHT TOES; BLISTER BETWEEN TOES IS DRAINING PURULENT DRAINAGE WITH SWELLING AND REDNESS; CONTINUING TO ELEVATE BLE. WILL CONTINUE TO MONITOR.
--- NOTE | 2020-10-31 12:23 | NUR ---
UNASYN INFUSING; IV SITE APPEARS HEALTHY AND FLUSHES. RECEIVED ATROVENT FROM RESPIRATORY DEPARTMENT. ATE 100% OF LUNCH.
--- NOTE | 2020-10-31 12:54 | NUR ---
RESTING IN CHAIR; OXYGEN TITRATED DOWN TO 10L BY RT; SPO2 94% WHILE AT REST. WILL CONTINUE TO MONITOR.
--- NOTE | 2020-10-31 13:30 | NUR ---
TYLENOL GIVEN FOR PAIN TO LLE AND RIGHT FOOT; PT REPORTS THAT COLCHICINE DID HELP SOME WITH HIS PAIN. BLE ARE ELEVATED IN RECLINER; GAUZE DRESSING BETWEEN TOES REPLACED DUE TO DRAINAGE. ATIVAN ALSO GIVEN FOR MILD ANXIETY TO IMPROVE RESPIRATIONS; CURRENTLY 99% SPO2.
--- NOTE | 2020-10-31 15:28 | NUR ---
AT BEDSIDE. VSS. NSR WITH OCCASIONAL PVC'S HEART RATE 92.
--- NOTE | 2020-10-31 15:48 | NUR ---
PHYSICAL THERAPY AT BEDSIDE.
--- NOTE | 2020-10-31 20:15 | NUR ---
[id number] observed from outside room pts resps are even & unlabored. pt began to pant & spoke in breathless manner as staff entered. assisted to bsc per request. o2 cont per 10 l/m per high flow cannula. laboratory monitor sinus rhythm pacs pvcs hr 96. #20 lac saline lock. po fluids taken well. voids per urinal. pt cont to require MUCH encouragement to assist with care(plug in cell phone, get eyes drops out of table, pour a glassful of water) as he is capable of doing for himself. fall precautions cont.
--- NOTE | 2020-10-31 22:50 | NUR ---
pt called this real estate underwriter c/o "can't breathe." sao2 had been 96%. pt now panting. sao2 86%. rt notified & she increased o2 to 15 l/m. o2 sat increased to 93%. ativan 1mg ivp slowly given with effect.
--- NOTE | 2020-10-31 23:00 | NUR ---
Called to ICU to assess patient. O2 sats decreased to 87% on 10L with panting respirations. Increased O2 to 15L with sats increasing to 93% with shortness of breath improving.
[2020-11-01] VITALS (14 sets, daily range): BP systolic 108–156; BP diastolic 72–95
--- NOTE | 2020-11-01 01:00 | NUR ---
Patient sleeping at this time with sats 95% on 15L HFNC. Neb tx not given at this time.
--- NOTE | 2020-11-01 02:00 | NUR ---
pt removed bp cuff.
--- NOTE | 2020-11-01 02:00 | NUR ---
pt called this song writer & requested "help with the urinal." asked pt what help he needed. pt said "help with my sheets." instructed pt he was able to move his sheets. pt complied.
--- NOTE | 2020-11-01 03:45 | NUR ---
pt called & requested "sheet pulled up." pt assisted per other nurse on duty.
--- NOTE | 2020-11-01 04:15 | NUR ---
lab here. blood drawn.
[2020-11-01 05:39] LABS: HEMATOCRIT 46.3 % (39.0-50.0); HEMOGLOBIN 14.2 g/dl (14.0-18.0); IMMATURE GRANULOCYTES 0.8 % (0.0-5.0); MEAN CELL VOLUME 92.4 fL CALC (80.0-100.0); MEAN CORPUSCULAR HGB 28.3 pG CALC (26.0-32.0); MEAN CORPUSCULAR HGB CONC 30.7 g/dL CAL (32.0-36.0); NEUT# 7.62 thou/uL (1.82-7.42); RED BLOOD COUNT 5.01 mill/uL (4.70-6.10); RED CELL DISTRI WIDTH 16.8 % (11.5-15.5)
[2020-11-01 05:43] LABS: ALBUMIN 3.5 g/dL (3.2-5.0); ALKALINE PHOSPHATASE 108 u/l (38-126); ANION GAP 9 (6-22 (CALC)); BILIRUBIN, TOTAL 0.7 mg/dL (0.0-1.4); BUN 24 mg/dL (8-23); BUN/CREATININE RATIO 29 (12-20 (CALC)); CARBON DIOXIDE 39 mmol/l (22-30); CHLORIDE 98 mmol/l (95-108); CREATININE 0.8 mg/dL (0.7-1.3); GFR > 60 ML/MIN (>=60 (CALC)); GFR FOR AFR.AMER. > 60 ML/MIN (>=60 (CALC)); POTASSIUM 4.3 mmol/l (3.5-5.1); SGOT/AST 45 u/l (19-48); SODIUM 141 mmol/l (137-146); TOTAL PROTEIN 6.4 g/dL (6.3-8.2)
--- NOTE | 2020-11-01 07:06 | NUR ---
REPORT RECEIVED FROM MARIANA KINNEY. PT RESTING IN BED SEMI FOWLERS; AWAKE AND ORIENTED X 3. UNASYN COMPLETED; IV SITE FLUSHED WELL AND APPEARS HEALTHY. C/O MILD PAIN TO LLE AND RIGHT FOOT. RESPIRATIONS SHALLOW AND TACHYPNEIC AT 33 PER MINUTE ON 15L HIGH FLOW NC; SPO2 91%. NSR WITH OCCASIONAL PAC'S AND PVC'S HEART RATE OF 93. POC REVIEWED. SAFETY MEASURES IN PLACE. CALL LIGHT WITHIN REACH.
--- NOTE | 2020-11-01 08:21 | NUR ---
UP TO CHAIR FOR BREAKFAST; BREATHING TREATMENT GIVEN BT RT. DR. PHILLIPS AT BEDSIDE.
--- NOTE | 2020-11-01 09:28 | NUR ---
TO BSC FOR MODERATE SOFT BROWN BOWEL MOVEMENT; NON REBREATHER APPLIED DURING EXERTION; PT BATHED SELF; PT APPEARS ANXIOUS DURING ACTIVITY AND HAVING SOME URINARY INCONTINENCE. LINENS TO CHAIR AND GOWN CHANGED AND PT BACK UP INTO CHAIR. AFTER A FEW MINUTES; SPO2 IS 100% AND NONREBREATHER REMOVED; CURRENTLY NOW AT 15L HIGH FLOW NC. AM MEDS ADMINISTERED; PT INVOLVED AND QUESTIONS ANSWERED REGARDING MEDICATIONS. ALL NEEDS MET AT THIS TIME. DAUGHTER CALLED FOR UPDATE ON PATIENT CONDITION AND PLAN OF CARE.
--- NOTE | 2020-11-01 10:51 | NUR ---
SPO2 98-99% AT REST; TITRATED DOWN TO 12L. UPDATED ON PLANS FOR DISCHARGE TO [facility] IN [place]. REPOSITIONS SELF IN CHAIR; EXTRA PILLOW PROVIDED FOR HEAD.
--- NOTE | 2020-11-01 13:16 | NUR ---
FITZGERALD SWAB OBTAINED AND SENT TO LAB. PT AGAIN UP TO BSC FOR BOWEL MOVEMENT. REMAINS ON 10L VIA HIGH FLOW NC DURING EXERTION; DEEP BREATHING TECHNIQUES ENCOURAGED. SPO2 DECREASES TO 84% AND WHILE ON COMMODE RETURNS TO 92%. IMPROVED FROM THIS MORNING.
--- NOTE | 2020-11-01 13:34 | NUR ---
DURING TRANSFER FROM BSC TO CHAIR, PT EXPERIENCING INCREASED SOB WITH VERY QUICK, SHALLOW BREATHS; SPO2 DECREASED TO 67%; OXYGEN INCREASED TO 15L AND PT ENCOURAGED TO REST; SPO2 INCREASES WITH REST UP TO 91% WITHIN MINUTES. RT AT BEDSIDE FOR SCHEDULED BREATHING TREATMENT.
--- NOTE | 2020-11-01 14:35 | NUR ---
TOMASZ PT AT BEDSIDE
--- NOTE | 2020-11-01 14:56 | NUR ---
SEEN BY PHYSICAL THERPAY. ASSISTED WITH URINAL AND SOCKS DUE TO C/O RIGHT TOE PAIN. CZECH ICE PROVIDED PER PT REQUEST.
--- NOTE | 2020-11-01 15:37 | NUR ---
QUESTIONS ANSWERED FOR [facility] AT [facility].
--- NOTE | 2020-11-01 16:01 | NUR ---
PT note Patient is seen fo rDBE as before. I also reviewed HEP of seated ankle pumps, seated leg press and chair pushup to be 2-3 reps every hour he is up. He is dyspneic at 2 plus at rest with saturation of 86%. With relaxation he is able to achieve 90% but remains fatigued. He is still unable to ambulate in room due to O2 weaning, dyspnea and fatigue Am Pac is unchanged but he remains an excellent rehab candidate Our plan is to continue current treatment and progress therapeutic exercises and transfers
--- NOTE | 2020-11-01 17:38 | NUR ---
RELOCATED TO ICU ROOM 4 DUE TO MAINTENANCE ORDERS; ORIENTED TO NEW ROOM AND REMINDED OF CALL LIGHT SYSTEM. SITTING UP EATING DINNER.
--- NOTE | 2020-11-01 18:03 | NUR ---
SOB WHILE EATING DINNER AND HAVING TO STOP EATING TO TAKE DEEP BREATHS; SPO2 84%; BREATHING TREATMENT GIVEN BY RT. CURRENTLY ON 10L VIA NC. C/O NASAL CONGESTION AND COUGHING UP THICK, YELLOW SPUTUM. NEW ORDER RECEIVED FOR MUCINEX.
--- NOTE | 2020-11-01 18:24 | NUR ---
MUCINEX AND TYLENOL ADMINISTERED; BLE ELEVATED IN CHAIR. UNASYN INFUSING WITHOUT DIFFICULTY. PT ATE 100% OF ALL MEALS THIS SHIFT AND DRANK ALL LIQUIDS. VSS. SAFETY MEASURES IN PLACE.
--- NOTE | 2020-11-01 19:30 | NUR ---
sitting in bedside chair. no acute resp diff. o2 cont @ 10 l/m per nc. security monitor shows sinus rhythm pacs pvcs hr 96. #20 lac saline lock. po fluids taken well. voids per urinal. fall precautions cont.
--- NOTE | 2020-11-01 22:00 | NUR ---
sitting in bedside chair. no resp distress. o2 cont per high flow nasal cannula. pt appears to be overly concerned about himself. wants national accounts recruiter facing him @ all times.
--- NOTE | 2020-11-01 23:00 | NUR ---
[id number] pt called this telegraphic typewriter mechanic & is "ready for bed." cont to require MUCH encouragement to assist with care. iv abx began & was completed. ativan 1mg ivp given.
[2020-11-02] VITALS (11 sets, daily range): BP systolic 101–150; BP diastolic 68–92
--- NOTE | 2020-11-02 00:55 | NUR ---
pt has been asleep, sao2 93% sinus rhythm hr 72, but is now awake. moaning out loudly. c/o sob. sitting on side of bed. panting. sao2 77%. requested nrb. rt notified. neb tx given. sao2 increased to 100% but pt is still melodramatic, moaning out. after few minutes pt repositioned self in bed sao2 96%. no obvious distress.
--- NOTE | 2020-11-02 04:00 | NUR ---
eyes closed. no resp diff. o2 cont. splicer machine operator shows sinus rhythm hr 96.
--- NOTE | 2020-11-02 05:30 | NUR ---
xray here. pcxr obtained. blood drawn & sent to lab.
[2020-11-02 06:02] LABS: HEMATOCRIT 47.2 % (39.0-50.0); HEMOGLOBIN 14.8 g/dl (14.0-18.0); IMMATURE GRANULOCYTES 0.9 % (0.0-5.0); MEAN CELL VOLUME 91.5 fL CALC (80.0-100.0); MEAN CORPUSCULAR HGB 28.7 pG CALC (26.0-32.0); MEAN CORPUSCULAR HGB CONC 31.4 g/dL CAL (32.0-36.0); NEUT# 8.35 thou/uL (1.82-7.42); RED BLOOD COUNT 5.16 mill/uL (4.70-6.10); RED CELL DISTRI WIDTH 16.8 % (11.5-15.5)
[2020-11-02 06:25] LABS: ANION GAP 7 (6-22 (CALC)); BUN 19 mg/dL (8-23); BUN/CREATININE RATIO 27 (12-20 (CALC)); C-REACTIVE PROTEIN 5.5 mg/dL (0-0.9); CHLORIDE 98 mmol/l (95-108); CREATININE 0.7 mg/dL (0.7-1.3); GFR > 60 ML/MIN (>=60 (CALC)); GFR FOR AFR.AMER. > 60 ML/MIN (>=60 (CALC)); POTASSIUM 4.4 mmol/l (3.5-5.1); SODIUM 141 mmol/l (137-146)
[2020-11-02 06:33] LABS: CARBON DIOXIDE 40 mmol/l (22-30)
--- NOTE | 2020-11-02 06:35 | NUR ---
PT IN BED, LAYING FLAT. NO ACUTE DISTRESS NOTED. PT ON 10LPM HFNC C NRB. CLOTHING SUPERVISOR TO MONITOR.
--- NOTE | 2020-11-02 07:46 | NUR ---
REPORT RECEIVED FROM MARIANA KINNEY. PT RESTING IN BED SEMI FOWLERS; ALERT AND ORIENTED. ASSISTED INTO CHAIR FOR BREAKFAST. C/O PAIN TO EXTREMITIES. RESPIRATIONS SHALLOW AND EVEN ON 10L VIA HF NC AND NON REBREATHER IN PLACE; SPO2 GREATER THAN 90. PT HAVING AN EPISODE OF DRY COUGHING AND BECOMES LABORED WITH SPO2 DECREASING TO 85% AND HEART RATE INCREASING TO 130. SAFETY MEASURES IN PLACE. CALL LIGHT WITHIN REACH.
--- NOTE | 2020-11-02 08:30 | NUR ---
DR. PHILLIPS AT BEDSIDE.
--- NOTE | 2020-11-02 09:19 | NUR ---
OCCUPATIONAL THERAPY AT BEDSIDE.
--- NOTE | 2020-11-02 12:02 | NUR ---
SITTING UP EATING LUNCH SLOWLY; PAUSED TO USE URINAL. PT APPLIES NON REBREATHER OVER HIGH FLOW NC PRIOR TO EXERTION. UNASYN INFUSING AT THIS TIME; IV SITE TO RAC APPEARS HEALTHY AND FLUSHES.
--- NOTE | 2020-11-02 14:33 | NUR ---
UP TO [facility] [place] FOR BOWEL MOVEMENT AND BACK INTO CHAIR. IV SITE DRESSING REPLACED DUE TO BLEEDING; SITE REINFORCED AND PATENT. PHYSICAL THERAPY AT BEDSIDE.
--- NOTE | 2020-11-02 14:46 | NUR ---
PT NOTE Patient was reclined in chair as entered room. Patient agreed to participate as much as he would be able to. Lowered legs to ground, began to do toe ups, O2 stats dipped below 90%, relaxed and initiated breathing for O2 to raise. O2 above 90% patient initiated heel slide w/ marching, completed few sets as O2 dipped below 90. Patient relaxed and executed breathing and O2 raised again. Patient initiated arms above head and again O2 dipped. DC exercises due to O@ dipping below 90%. Patient gained around 800-900 on spirometer. Patient was reclined with legs up as exited room with tray table and call dudley by patient side. AMPA 6 remains unchanged
--- NOTE | 2020-11-02 16:04 | NUR ---
RT AT BEDSIDE FOR BREATHING TREATMENT.
--- NOTE | 2020-11-02 17:45 | NUR ---
SITTING UP EATING DINNER; ATE 100%. UNASYN INFUSING. TYLENOL GIVEN FOR BLE DISOMFORT; BOTH ELEVATED IN CHAIR AND LLE ELEVATED MORE WITH PILLOW. BRUSHED TEETH AFTER MEAL INDEPENDENTLY; FRESH WATER PROVIDED. NO OTHER REQUESTS AT THIS TIME.
--- NOTE | 2020-11-02 18:33 | NUR ---
93% ON 10L; RT AT BEDSIDE FOR TREATMENT. PT IN BETTER SPIRITS THAN EARLIER TODAY.
--- NOTE | 2020-11-02 19:31 | NUR ---
PATIENT IS AWAKE, ORIENTED X4. SITS IN RECLINER, WATCHES TV. PAIN LEVEL ON LLE IS 2 OUT OF 10. REPORTS HIS BIRTHDAY IS TOMORROW. POC DISCUSSED, PATIENT AGREES AND UNDERSTANDS. IS ON 10 L/MIN HIGH FLOW NC H., RESPS ARE SHALLOW, HAS NRB MASK AT BEDSIDE NEEDED, REPORTS HE TRIES NOT TO USE IT. IS AND FLUTTER VALVE AT BEDSIDE, REMINDED TO USE IT, REPORTS HE DOES USE THEM THROUGHOUT THE DAY. NURSE ASSESSMENT PERFORMED. RAC 20 G IV INTACT, FLUSHES PROPERLY, SALINE LOCKED. BP WNL, HR 80'S, SR. LLE ELEVATED WITH PILLOW, IT IS EDEMETOUS, GREATER THAN RLE, WARM TO TOUCH/RED, STRONG PEDAL PULSES PRESENT BILATERALLY. AFEBRILE. NO NEEDS AT THSI TIME. CALL [facility] WITHIN REACH.
--- NOTE | 2020-11-02 20:54 | NUR ---
PATIENT MORTGAGE LOAN COMPUTATION CLERK LIGHT, ASSISTED STANDBY TO BSC, PATIENT PLACES NRB MASK ON, CALL LIGHT WITHIN REACH.
--- NOTE | 2020-11-02 21:50 | NUR ---
PATIENT ABLE TO MOVE FROM BSC TO BED. WAS ABLE TO CLEAN HIMSELF WITH TWO WASHCLOTHS REQUESTED, NO BLOOD NOTED IN BM: SOFT/BROWN. SCANT BRIGHT RED BLOOD NOTED TO WASHCLOTH. ABLE TO SWALLOW MEDICATIONS, PROVIDED MUCINEX PRN AND TYLENOL PRN PER REQUEST. DID USE NRB MASK WHEN ON BSC AND MOVING TO BED DUE TO SOB WITH EXERTION, WHEN ON HIGH FLOW NC AT 10 L/MIN HE DESATED TO LOW 80'S, SPIO2 NOW SLOWLY RECUPERATING, LAYS IN PUGA'S PSOITION. BLISTER BETWEEN RIGHT 2ND AND 3RD TOE CLEANSED WITH SALINE, PATTED DRY, HONEY OINTMENT APPLIED WITH 4X4 GAUZE IN PLACE. NOTED ANOTHER PURPLE SPOT IN BETWEEN 4TH AND 5TH TOE, WAS ALSO CLEANSED AND GAUZE PLACED, BILATERAL HEELS ARE DRY AND CRACKED. OFFERED TO PLACE A LOOSE NON-SKID SOCK TO L-FOOT DUE TO SWELLING AND HIS HOME SOCKS ARE TIGHT AROUND FOOT AND LEG, WAS HESITANT AND WHEN PLACED AGREED IT WAS MORE COMFORTABLE, LEFT LEG ELEVATED WITH PILLOW. CUP OF ICED WATER PROVIDED. CALL LIGHT WITHIN REACH.
--- NOTE | 2020-11-02 23:57 | NUR ---
ANTIBIOTIC INFUSING NOW, PATIENT IS AWAKE, WAS FINISHED WITH HIS BREATHING TREATMENT, ON HIGH FLOW NC H AT 10 L/MIN, O2 SATS 88% WITH EXERTION. REQUESTED A WET WASHLOTH TO WIPE HIS MOUTH AREA AFTER BREATHING TX. NO OTHER NEEDS AT THIS TIME. CALL LIGHT WITHIN REACH.
[2020-11-03] VITALS (14 sets, daily range): BP systolic 120–156; BP diastolic 79–97
--- NOTE | 2020-11-03 01:13 | NUR ---
PATIENT SAT ON SIDE OF BED AND USED URINAL. NOW LAYS BACK IN BED. NO OTHER NEEDS AT THIS TIME. CLAL LIGHT WITHIN REACH.
--- NOTE | 2020-11-03 03:32 | NUR ---
PATIENT PRODUCT TESTER LIGHT, REPORTS HE SPILLED WATER ON THE BED. BED PADS CHANGED, GOWN CHANGED. PATIENT USED URINAL WELL. PATIENT HAD NRB MASK ON WHILE SITTING UP. NOW LAYS IN PUGA'S AND NRB MASK OFF. O2 SAT 92% AT THIS TIME.
--- NOTE | 2020-11-03 06:28 | NUR ---
PATIENT IS AWAKE, DID COUGH UP MODERATE PHLEGM BLOOD-TINGED/YELLOW/THICK. NO NEEDS OR COMPLAINTS AT THIS TIME. CALL LIGHT WITHIN REACH.
--- NOTE | 2020-11-03 07:07 | NUR ---
PT RESTING IN BED, RESPIRATIONS SHALLOW. NO ACUTE DISTRESS NOTED. PT NXIETY SEEMS INCREASED THIS MORNING. PLEATING SUPERVISOR TO MONITOR, WILL ATTEMPT TO WEAN WHEN PT AWAKE FOR THE DAY.
--- NOTE | 2020-11-03 07:32 | NUR ---
PT AWAKE, ALERT, ORIENTED X 3. LUNGS CLEAR BUT DECREASED, USES 10 LPM WITH SUPPLEMENTAL NONREBREATHER NEEDED WITH ACTIVITY. PT ASSISTED TO CHAIR AT BEDSIDE, READIED FOR BREAKFAST. NO ACUTE DISTRESS.
--- NOTE | 2020-11-03 11:45 | NUR ---
PT SEEN BY DR PHILLIPS THIS MORNING, PLANS FOR CTA TODAY. PT REMAINS OOB IN CHAIR, 10 LPM NC AND USES NRB STANDBY FOR SOB. PT WITH SHALLOW, [id number]-[id number] RESPIRATIONS, SATS REMAIN MID TO UPPER 90s. PT STATES THAT HE FEELS TIRED TODAY. IT IS HIS BIRTHDAY.
--- NOTE | 2020-11-03 13:42 | NUR ---
PT NOTE Patient seated in chair as entered room, was executing breathing treatment, nurse stated ok to work with him O2 stats remained above 90 through out treatment today. Patient executed sit>stand(SBA), verbal cues for correct hand placement as he ascends to a standing position and descneds to a seate position. Patient executed 2 steps anterior and posterior. Tray table and call dudley by patient side as exited room. [facility] 6 remains unchanged.
--- NOTE | 2020-11-03 17:23 | NUR ---
PT UPDATED ON LATEST RESULT FROM CTA CHEST. PT WITH VISIT FROM HIS THIS AFTERNOON, WHO ASSISTED WITH BATH AND GROOMING. PT REMAINS ON NC 10 LPM, SATS MID TO UPPER 90s.
--- NOTE | 2020-11-03 20:35 | NUR ---
PATIENT AWAKE, ORIENTED X4, IS ON 10 L/MIN NC H AND ALSO WEARS NRB MASK AT 15 L/MIN, O2 SATS 98%-100%, SHALLOW BREATHING, RESP RATE 30'S. NURSE ASSESSMENT PERFORMED. REPORTS HIS LLE FEELS BETTER, IT CONTINUES TO BE EDEMETOUS/RED/WARM TO TOUCH, PEDAL PULSES BILATERALLY STRONG. RAC 20 G IV INTACT, FLUSHES PROPERLY, SALINE LOCKED. POC DISCUSSED. SITS IN RECLINER. NO COMPLAINTS OR NEEDS AT THSI TIME. USES URINAL, URINE YELLOW/CLEAR.
--- NOTE | 2020-11-03 21:45 | NUR ---
PATIENT ABLE TO SWALLOW HIS MEDIACTIONS, TYLENOL GIVEN PER REQUEST FOR LLE PAIN RATES 4 OUT OF 10. ATIVAN IV GIVEN TO SLEEP. PATIENT ABLE TO MANEUVER FROM RECLINER TO BED, LAYS IN PUGA'S POSITION. RIGHT 2ND AND 3RD TOE BLISTER CLEANSD WITH SALINE, PATTED DRY AND HONEY OINTMENT APPLIED WITH [address] CLE[address] SOCKS PLACED, LLE ELEVATED WITH PILLOWS. NO OTHER COMPLAINTS OR NEEDS AT THIS TIME. CALL LIGHT WITHION REACH. PATIENT DECIDES TO KEEP NRB MASK ON, WAS EDUACTED ABOUT WEANING O2, HIGH FLOW NC WEANED TO 6 L/MIN H. WILL CONTINUE TO MONITOR.
--- NOTE | 2020-11-03 23:32 | NUR ---
PATIENT'S DAUGHTER CALLED HERE, PROVIDED PASSCODE. UPDATES GIVEN. ALSO, REPORTED SHE WAS CONCERNED ABOUT HER DAD BECOMING DEPRESSED, NOTIFIED HER I WILL NOT[facility].
[2020-11-04] VITALS (15 sets, daily range): BP systolic 112–162; BP diastolic 71–96
--- NOTE | 2020-11-04 | NUR ---
RT IN ROOM TO PROVIDE BREATHING TX. PATIENT O2 SATS WITH NRB MASK GREATER THAN 95%, HIGH FLOW NC H PLACED BACK ON WAS TITARTED TO 14 L/MIN, NRB MASK TAKEN OFF, PATIENT AWAKENS AND REPEATS "AIR," O2 SATS 87%, PURSED LIP BREATHING ENCOURAGED, PATIENT REASSURED, ENCOURAGED TO CALM DOWN. WILL CONTINUE TO MONITOR.
--- NOTE | 2020-11-04 00:29 | NUR ---
PATIENT WAS ASSISTED WITH PULLING UP SINCE HE WAS SCOOTED DOWN. WAS ENCOURAGED TO CALM DOWN, TAKE DEEP BREATHES, PURSED LIP BREATHING, O2 SATS 88%, NRB MASK PLACED ON AND O2 SATS 100%, SOON PATIENT RESP RATE DOWN AND PATIENT CALMER, NRB MASK TAKEN OFF. REMAINS ON HIGH FLOW NC AT 15 L/MIN H. WILL CONTINUE TO MONITOR.
--- NOTE | 2020-11-04 00:38 | NUR ---
PATIWNT TIP BANDER LIGHT, REQUESTS TO USE URINAL, NOW SITS ON SIDE OF BED.
--- NOTE | 2020-11-04 02:10 | NUR ---
PATIENT CONTINUES TO PLACE NRB MASK BACK ON AFTER BEING EDUCATED ON NRB VS HIGH FLOW NC. HE LAYS IN HIGH PUGA'S, RESTS WITH EYES CLOSED. NRB MASK OFF NOW. WILL CONTINUE TO MONITOR.
--- NOTE | 2020-11-04 02:51 | NUR ---
PATIENT DECIDES TO TAKE NRB MASK OFF AND DESATS, INCREASED WORK OF BREATHING, O2 SAT DRPPED TO 64%. WAS INSTRUCTED PURSED LIP BREATHING, HIGH FLOW NC ON WELL. WILL CONTINUE TO MONITOR.
--- NOTE | 2020-11-04 05:07 | NUR ---
CTO IN ROOM.
--- NOTE | 2020-11-04 05:37 | NUR ---
WITH PATIENT REQUIRING MORE OXYGEN THROUGH THE NIGHT WITH NRB AND HIGH FLOW NC, ABG WAS ORDERED, CALLED AND SPOKE TO ALLEN SANDHU APRN TO NOTIFY OF ABG RESULTS, NEW ORDERS FOR VAPOTHERM OR BIPAP NEEDED. RT AWARE.
[2020-11-04 05:39] LABS: HEMATOCRIT 44.2 % (39.0-50.0); HEMOGLOBIN 13.3 g/dl (14.0-18.0); IMMATURE GRANULOCYTES 0.8 % (0.0-5.0); MEAN CELL VOLUME 92.7 fL CALC (80.0-100.0); MEAN CORPUSCULAR HGB 27.9 pG CALC (26.0-32.0); MEAN CORPUSCULAR HGB CONC 30.1 g/dL CAL (32.0-36.0); NEUT# 8.05 thou/uL (1.82-7.42); RED BLOOD COUNT 4.77 mill/uL (4.70-6.10); RED CELL DISTRI WIDTH 16.1 % (11.5-15.5)
--- NOTE | 2020-11-04 05:48 | NUR ---
RT IN ROOM SETTING UP BIPAP.
[2020-11-04 06:01] LABS: ANION GAP 8 (6-22 (CALC)); BUN 15 mg/dL (8-23); BUN/CREATININE RATIO 25 (12-20 (CALC)); C-REACTIVE PROTEIN 4.7 mg/dL (0-0.9); CHLORIDE 94 mmol/l (95-108); CREATININE 0.6 mg/dL (0.7-1.3); GFR > 60 ML/MIN (>=60 (CALC)); GFR FOR AFR.AMER. > 60 ML/MIN (>=60 (CALC)); POTASSIUM 4.1 mmol/l (3.5-5.1); SODIUM 138 mmol/l (137-146)
--- NOTE | 2020-11-04 06:11 | NUR ---
EFRAIN VILLA WAS CALLED WITH ABG RESULT. HE ORDERED TO PLACE THE PATIENT ON BIPAP.
[2020-11-04 06:21] LABS: CARBON DIOXIDE 40 mmol/l (22-30)
--- NOTE | 2020-11-04 07:12 | NUR ---
PT RECIEVED ON BIPAP DOCUMENTED SETTINGS. ARTHUR WELL. INCREASED RR. NO ACUTE DISTRESS. [employer] SPECIALIST TO MONITOR. RN IN ROOM WELL.
--- NOTE | 2020-11-04 07:15 | NUR ---
PT. RESTING IN BED WITH RT AT BEDSIDE. BIPAP IN PLACE WITH SETTINGS PER RT. SPO2 96%. WILL CONTINUE TO MONITOR. ASSESSMENT COMPLETED. IV SITE PATENT AND SL, FLUSHES WELL. DENIES NEEDS/PAIN. URINAL EMPTIED. AUTOTRANSFUSIONIST READING SR. ENCOURAGED TO CALL FOR ANY NEEDS. CALL LIGHT IS IN REACH.
--- NOTE | 2020-11-04 08:40 | NUR ---
PLACED PT ON VAPOTHERM OFF OF BIPAP. 30LPM/100%. PT ARTHUR WELL. MD AWARE. PLAN ON QHS AND PRN BIPAP, C VPOTHERM DURING THE DAY AND WEAN ARTHUR.
--- NOTE | 2020-11-04 09:46 | NUR ---
increased vapotherm lpm from 30 to 40 as per pt spo2. lea well. rn in room. no acute distress noted at this time. overhead garage door hanger to monitor.
--- NOTE | 2020-11-04 10:00 | NUR ---
PT. REMAINS ON VAPOTHERM MAXED OUT. AND INTERMITTENTLY USING NRB MASK. SPO2 RANGING 92-96%; WILL CONTINUE TO MONITOR.
--- NOTE | 2020-11-04 10:30 | NUR ---
SPOKE WITH DAUGHTER AND ANSWERED ALL QUESTIONS.
--- NOTE | 2020-11-04 11:35 | NUR ---
PT. UP TO BSC AND NO DISTRESS NOTED AT THIS TIME. SPO2 96% AND HR LOW 100'S; WILL CONTINUE TO MONITOR.
--- NOTE | 2020-11-04 13:55 | NUR ---
PT.RESTLESS UP AND DOWN AQND DESTAURATION OCCURING WITH EXERTION; [id number] TECHNIQUS IMPLEMENTED AND MEDICATD WITH ORDERED PRN ATIVAN PER EMAR;WILL REASSESS.
--- NOTE | 2020-11-04 14:59 | NUR ---
attempted to see pt however treatment is being held for nursing at this time. ampac score remains at 12
--- NOTE | 2020-11-04 15:16 | NUR ---
PLACED ON BIPAPAS PER PT REQUEST. RN IN ROOM. INVENTORY ASSOCIATE TO MONITOR.
--- NOTE | 2020-11-04 15:20 | NUR ---
DR. PHILLIPS NOTIFIED OF PT'S RESTLESSNESS WELL WITH IT INCREASING POST ATIVAN ADMINISTRATION; PT. REMOVING OXYGEN AND NOW BIPAP CORDS; RELAXATION TECHNIQUES IMPLEMENTED. PER MD HE WANTS PT. TO MAINTAIN SPO2 AT 92-93% AND WOULD LIKE AN ABG DONE AND TO BE CALLED WITH RESULTS. MESSAGE RELAYED TO RT.
--- NOTE | 2020-11-04 16:08 | NUR ---
ABG DRAWN PER MD VO. BIPAP SETTINGS TITRATED PER ABG RESULTS. MD REQUESTS TO KEEP SPO2 BETWEEN 90-93. RN AWARE. VENDING ATTENDANT TO MONITOR.
--- NOTE | 2020-11-04 17:26 | NUR ---
PT. SITTING UP IN BED WITH BIPAP IN PLACE. WILL CONTINUE TO MONITOR.
--- NOTE | 2020-11-04 19:45 | NUR ---
RESTING IN BED IN HIGH FOWLERS POSITION. PATIENT ANXIOUS WITH PANTING RESPIRATIONS. RESPONDS TO VERBAL CUES TO SLOW BREATHING DOWN. ON BIPAP 16/8, RATE 20, O2 50% O2 SAT 93% BREATH SOUNDS DIMIISHED THROUGHOUT. PITTING EDEMA OF BLE, 2+ IN LLE AND 1+ IN RLE. LLE REDDENED AND RLE WITH PIGMENTATION CHANGES. PERIPHERAL PULSES PALPABLE. SALINE LOCK IN PLACE IN RAC, SITE BENIGN. INTERNATIONAL LOGISTICS COORDINATOR SHOWS SR-ST. DISCUSSED PLAN OF CARE AND MANAGEMENT OF ANXIETY. DENIES NEEDS ATH TIS TIME. CALL GUSMAN IN REACH.
--- NOTE | 2020-11-04 20:33 | NUR ---
INFORMED DR PHILLIPS OF PATIENT HIGH ANXIETY LEVEL. NEW ORDERS RECEIVED,
--- NOTE | 2020-11-04 20:45 | NUR ---
ASSISTED PATIENT UP TO BSC. VOIDS SMALL AMOUNT, NO BM. PATIENT PUT SELF BACK TO BED.
--- NOTE | 2020-11-04 21:00 | NUR ---
MEDICATED WITH XANAX 0.5 MG PO ORDERED FOR ANXIETY.
--- NOTE | 2020-11-04 22:00 | NUR ---
PATIENT REPEATEDLY REMOVING BIPAP MASK, PULSE OX AND EKG LEADS. DISCUSSED WITH PATIENT NEED TO LEAVE INPLACE FOR MONITORING. BINU TSTATES "I KNOW." VSS. ST ON MONITOR.
[2020-11-05] VITALS (21 sets, daily range): BP systolic 80–157; BP diastolic 52–101
--- NOTE | 2020-11-05 00:05 | NUR ---
SALINE LOCK IN RAC FLUSHED PRE AND POST INFUSION OF IVAB. PATIENT CONTINUES TO BE RESTLESS, FREQ REMOVING BIPAP MASK AND PULSE OX. WHEN PATIENT IS QUESTIONED TO WHY HE IS REMOVING MONITORING EQUIPMENT HE SHRUGS HIS SHOULDERS. FREQ SUPPORT AND REASSURANCE PROVIDED.
--- NOTE | 2020-11-05 01:00 | NUR ---
PATIENT REMAINS ANXIOUS AND RESTLESS. SHIRT BANDER, INVENTORY CONTROL CLERK AND OR MANAGER SWITCH FREQ IN ROOM. PATIENT CALMS ONLY BRIEFLY. RR 30'S-40'S. O2 SAT 88-93%
--- NOTE | 2020-11-05 01:30 | NUR ---
ASSISTED PATIENT TO SIT AT SIDE OF BED TO VOID.
--- NOTE | 2020-11-05 02:00 | NUR ---
PATIENT SITTING AT SIDE OF BED. RESP SHALLOW/RAPID-RR 40'S. O2 SAT 87% FREQ INSTRUCTIONS TO PATIENT TO SLOW BREATHING.
--- NOTE | 2020-11-05 02:20 | NUR ---
SENIOR J2EE DEVELOPER DARNELL IN TO SEE PATIENT. CONTINUALLY PROVIDING SUPPORT AND REASSURACE TO PATIENT.
--- NOTE | 2020-11-05 02:30 | NUR ---
PATIENT CONTNIUES TO REMOVE BIPAP WHEN STAFF LEAVE HIS ROOM. O2 SAT DROP TO 70'S, RR UP TO 50, HR 120'S. PATIENT NOT FOLLOW DIRECTION. SOFT WRIST RESTRAINTS APPLIED FOR PATIENT SAFETY.
--- NOTE | 2020-11-05 03:00 | NUR ---
RESTING WITH EYES CLSOED. RR 41, O2 SAT 91%
--- NOTE | 2020-11-05 03:30 | NUR ---
RESTING WITH EYES CLOSED AT THIS TIME.
--- NOTE | 2020-11-05 04:00 | NUR ---
RESTS WITH EYES CLOSED FOR BRIEF PERIODS 15-20 MINUTES AT A TIME. REMAINS [address] ON MONITOR. O2 SAT 90-94%
--- NOTE | 2020-11-05 06:47 | NUR ---
PT RESTING COMFORTABLY. NO ACUTE DISTRES NOTED. TITRATED BIPAP PARAMETERS PER MD VO TO MAINTAIN SPO2 90-93. PT ARTHUR WELL.
[2020-11-05 08:54] LABS: HEMOGLOBIN 13.6 g/dl (14.0-18.0); IMMATURE GRANULOCYTES 1.3 % (0.0-5.0); MEAN CELL VOLUME 90.7 fL CALC (80.0-100.0); MEAN CORPUSCULAR HGB 28.7 pG CALC (26.0-32.0); MEAN CORPUSCULAR HGB CONC 31.6 g/dL CAL (32.0-36.0); NEUT# 8.3 thou/uL (1.82-7.42); RED BLOOD COUNT 4.74 mill/uL (4.70-6.10); RED CELL DISTRI WIDTH 15.9 % (11.5-15.5)
--- NOTE | 2020-11-05 09:01 | NUR ---
PT ALERT AND APPROPRIATE REMAINS ON BIPAP. DR. PHILLIPS TO SEE PATIENT. DISCUSSED POC, PT AGREEABLE TO ATIVAN PRN, AND SEROQUEL AT BEDTIME.
--- NOTE | 2020-11-05 09:56 | NUR ---
PT REQUEST UP TO BSC FOR BM. EDUCATED PT ON CONSERVING HIS ENERGY, VS ARE TRENDING IN A POSITIVE DIRECTION AT THIS TIME. RR REMAIN >38. PT AGREEABLE TO USING BEDPAN AT THIS TIME.
[2020-11-05 10:16] LABS: ALBUMIN 3.5 g/dL (3.2-5.0); ALKALINE PHOSPHATASE 113 u/l (38-126); ANION GAP 12 (6-22 (CALC)); BILIRUBIN, TOTAL 0.8 mg/dL (0.0-1.4); BUN 13 mg/dL (8-23); BUN/CREATININE RATIO 24 (12-20 (CALC)); CARBON DIOXIDE 37 mmol/l (22-30); CHLORIDE 90 mmol/l (95-108); CREATININE 0.5 mg/dL (0.7-1.3); GFR > 60 ML/MIN (>=60 (CALC)); GFR FOR AFR.AMER. > 60 ML/MIN (>=60 (CALC)); POTASSIUM 3.8 mmol/l (3.5-5.1); SGOT/AST 34 u/l (19-48); SODIUM 136 mmol/l (137-146); TOTAL PROTEIN 6.5 g/dL (6.3-8.2)
--- NOTE | 2020-11-05 10:43 | NUR ---
PT REMAINS RESTLESS AT THIS TIME ON BIPAP. ST ON MONITOR AT 104, RR >40. O2 AT 90%. WRIST RESTRAINTS IN PLACE D/T PT PULLING/REMOVING BIPAP.
--- NOTE | 2020-11-05 12:40 | NUR ---
SPOKE WITH , DAUGHTER AND PT. ALL AGREED TO INTUBATION AND CENTRAL LINE PLACEMENT. SECOND NURSE Verónica PALACIOS WITNESSED CONSENT.
--- NOTE | 2020-11-05 13:48 | NUR ---
PT INTUBATED WITH 8.0 ETT AND 4MAC LARYENGOSCOPE PER INCREASED AGITATION/ALTERED MENTAL STATUS. ETT PLACEMENT CONFIRMED VIA BBS=, ETCO2 + COLOR CHANGE. CONDENSATION IN ETT. CXR OBTAINED. ER PHYSICIAN ATTEMPTED ONE SUCCESSFUL INTUBATION. ORDERS TO MAINTAIN SPO2 BETWEEN 90-93. VENT SETTINGS APPEAR TO BE EFFECTIVE, WILL OBTAIN ABG AT 1400 AND TITRATE PARAMETERS ACCORDINGLY. RN AWARE. CARE MANAGEMENT COORDINATOR TO MONITOR.
--- NOTE | 2020-11-05 14:30 | NUR ---
INTUBATION NOTES [phone] 1300-HALL PLACED, INTIAL OUTPUT 275ML 1315-DR. MATTHEWS TO PT'S ROOM 1318 ETOM 20 1319 NEELAM 100 1320 8.0 E.T. @24LL + AUS + CO2 [address] MATTHEWS + AUS 1327 ON VENT DIP PER PROTOCOL-SEE TITRATION CHARTING [address] MATTHEWS 1340 XRAY @ BEDSIDE CONFIRMED ET + CENTRAL LINE PLACEMENT
--- NOTE | 2020-11-05 17:00 | NUR ---
RECEIVED CALL FROM JAMES AT TRANSFER CENTER WITH ROOM AT [facility]. CALL NURSE TO NURSE REPORT AND WITH ETA.
--- NOTE | 2020-11-05 17:14 | NUR ---
SPOKE TO PTS , UPDATED HER WITH INFORMATION ON [facility] ACCEPTING PT TO THE ICU. WILL CALL WITH UPDATE WHEN TRANSPORTATION IS ARRANGED.
--- NOTE | 2020-11-05 18:43 | NUR ---
REPORT CALLED TO ANGELLA AT [facility].
--- NOTE | 2020-11-05 19:10 | NUR ---
PT TRANSFERRED TO [facility], AND TRANSPORTED OFF UNIT AT THIS TIME.
--- NOTE | 2020-11-05 19:56 | NUR ---
MISC FREQUENT VITAL SIGNS DUE TO NATURE OF IV MEDICATIONS FOR SEDATION. VITAL SIGNS SCANNED INTO PATIENTS CHART FOR REVIEW.
== END 2020-11-05 19:15 | disposition short-term general hospital (02) | DRG 208 ==
LOC: ED 12:23 → ED-I 14:20 → ED 14:35 → MS2 14:36 → ICU 14:36
PROVIDERS: Internal Medicine; Student in an Organized Health Care Education/Training Program; ADMIT Internal Medicine; ATTEND Internal Medicine
PROC: XW033E5 Introduction of Remdesivir Anti-infective into Peripheral Vein, Percutaneous Approach, New Technology Group 5 (ICD-10-PCS; principal; 2020-10-09)
PROC: 5A09357 Assistance with Respiratory Ventilation, Less than 24 Consecutive Hours, Continuous Positive Airway Pressure (ICD-10-PCS; 2020-10-12)
PROC: XW033H5 Introduction of Tocilizumab into Peripheral Vein, Percutaneous Approach, New Technology Group 5 (ICD-10-PCS; 2020-10-14)
PROC: 0T9B70Z Drainage of Bladder with Drainage Device, Via Natural or Artificial Opening (ICD-10-PCS; 2020-10-19)
PROC: 5A1935Z Respiratory Ventilation, Less than 24 Consecutive Hours (ICD-10-PCS; 2020-11-05)
PROC: 0BH17EZ Insertion of Endotracheal Airway into Trachea, Via Natural or Artificial Opening (ICD-10-PCS; 2020-11-05)
PROC: 05HM33Z Insertion of Infusion Device into Right Internal Jugular Vein, Percutaneous Approach (ICD-10-PCS; 2020-11-05)
DX: U07.1 COVID-19 (principal); J12.82 Pneumonia due to coronavirus disease 2019; J80 Acute respiratory distress syndrome; D68.61 Antiphospholipid syndrome; L03.116 Cellulitis of left lower limb; M10.9 Gout, unspecified; F41.9 Anxiety disorder, unspecified; R00.0 Tachycardia, unspecified; Z79.899 Other long term (current) drug therapy
CPT/HCPCS: J1650; J2060; J7626; Q3014; Q9967